=== PATIENT | male | born 1950 | race Hispanic/Latino ===

== ENCOUNTER 2019-01-30 16:00 | Inpatient (IN) | payer MEDICARE, OTHER ==
[2019-01-30 16:22] LABS: #Eosinphils 0.2 thou/uL (0.0-0.7); #Lymphocytes 2.7 thou/uL (1.20-3.40); #Monocytes 0.7 thou/uL (0.11-0.59); #Neutrophils 4.4 thou/uL (1.40-6.50); %Basophils 0.3 % (0.0-1.0); %Eosinophils 2.1 % (0.0-10.0); %Monocytes 8.3 % (0.0-10.0); %Neutrophils 55.3 % (42.0-75.0); Hemoglobin 15.1 g/dL (14.0-18.0); Mean Corpuscular HGB CONC 33.1 g/dL (32.0-36.0); Mean Corpuscular Hemoglobin 30.1 pg (27.0-31.0); Mean Platelet Volume 7.8 fL (7.4-10.4); Platelet Count 222 thou/uL (130-400); RBC Distribution Width 12.3 % (11.5-14.5)
--- NOTE | 2019-01-30 16:30 | RAD ---
Exam: Chest one view HISTORY:Chest pain Comparison: None FINDINGS: Lungs: Mild bilateral perihilar interstitial, reticulonodular opacities are present. Cardiac silhouette:Accentuated by technique. Pulmonary vessels: Mild prominence, centrally Pleural Spaces: Hazy density at the lower chest bilaterally could relate to shallow depth of inspirat ion although small volume pleural fluid cannot be excluded. Pneumothorax: None Osseous abnormalities: None of acuity. IMPRESSION: Bilateral perihilar interstitial opacities, as well as hazy densities at the lower lung z ones. While findings could relate to edema or sequela from bronchiolitis, this could also be due to accentuation by shallow depth of inspiration. Correlate with clinical assessment. Findings may be further assessed with follow-up 2 view chest with deeper inspiratory effort.
[2019-01-30 16:46] LABS: ALT (SGPT) 18 U/L (8-55); AST (SGOT) 17 U/L (5-34); Albumin 4.5 g/dL (3.4-4.8); Alkaline Phosphatase 82 U/L (40-110); Anion Gap 13 mmol/L (10-20); BUN (Urea Nitrogen) 9 mg/dL (8.4-25.7); Bilirubin, Total 0.3 mg/dL (0.2-1.2); CK (CPK) 105 U/L (30-200); Calc. Creatinine Clearance 0 mL/min (70-130); Calcium 9.2 mg/dL (7.8-10.44); Carbon Dioxide 23 mmol/L (23-31); Chloride 107 mmol/L (98-107); Estimated GFR-MDRD 82; Globulin 3.3 g/dL (2.4-3.5); Glucose 107 mg/dL (80-115); Potassium 3.9 mmol/L (3.5-5.1); Protein, Total 7.8 g/dL (5.8-8.1); Sodium 139 mmol/L (136-145)
[2019-01-30 17:08] LABS: CKMB 1.6 ng/mL (0-6.6)
[2019-01-30] MEDS ORDERED: Enoxaparin Sodium 100 MG/ML SYRINGE ONE (18:49)
[2019-01-30] MEDS ORDERED: Ondansetron PF 4 MG/2 ML Vial IVP PRN (22:17)
[2019-01-30] MEDS ORDERED: Acetaminophen 325 MG TAB PO PRN (22:17)
[2019-01-30] MEDS ORDERED: Ondansetron ODT 4 MG TAB SL PRN (22:17)
[2019-01-31] MEDS ORDERED: Acetaminophen 325 MG TAB PO PRN (02:01)
[2019-01-31] MEDS ORDERED: Bisacodyl 5 MG TAB PO PRN (02:01)
[2019-01-31] MEDS ORDERED: Ondansetron PF 4 MG/2 ML Vial IVP PRN (02:01)
[2019-01-31] MEDS ORDERED: Nitroglycerin 0.4 MG TAB (25 Tab Bottle) PO PRN (02:01)
[2019-01-31] MEDS ORDERED: hydrALAZINE 20 MG/ML VIAL SLOW IVP PRN (02:03)
[2019-01-31 02:37] LABS: Troponin I 0.028 ng/mL (< 0.028)
[2019-01-31 05:06] LABS: #Eosinphils 0.3 thou/uL (0.0-0.7); #Monocytes 0.7 thou/uL (0.11-0.59); #Neutrophils 3.7 thou/uL (1.40-6.50); %Basophils 0.3 % (0.0-1.0); %Eosinophils 3.7 % (0.0-10.0); %Lymphocytes 38.8 % (21.0-51.0); %Monocytes 9.1 % (0.0-10.0); %Neutrophils 48.1 % (42.0-75.0); Hemoglobin 14.4 g/dL (14.0-18.0); Mean Corpuscular Hemoglobin 30.8 pg (27.0-31.0); Mean Corpuscular Volume 93.4 fL (78.0-98.0); Mean Platelet Volume 8.7 fL (7.4-10.4); Platelet Count 203 thou/uL (130-400); RBC Distribution Width 12.5 % (11.5-14.5); Red Blood Cell (RBC) Count 4.69 mill/uL (4.70-6.10); White Blood Cell (WBC) Count 7.6 thou/uL (4.8-10.8)
[2019-01-31 05:14] LABS: Anion Gap 13 mmol/L (10-20); BUN (Urea Nitrogen) 9 mg/dL (8.4-25.7); Calc. Creatinine Clearance 115 mL/min (70-130); Carbon Dioxide 24 mmol/L (23-31); Chloride 106 mmol/L (98-107); Estimated GFR-MDRD 89; Glucose 98 mg/dL (80-115); Sodium 139 mmol/L (136-145)
[2019-01-31] MEDS ORDERED: Communication Order-Pharmacy FS SCH ×2 (06:15→17:16)
[2019-01-31] MEDS: Sodium Chloride 0.9% 1,000 ML IV SCH ×2 (06:58→17:47)
[2019-01-31] MEDS: Isosorbide Mononitrate 20 MG TAB PO SCH (06:59)
[2019-01-31] MEDS: Amlodipine 10 MG TAB PO SCH ×2 (07:00→07:01)
[2019-01-31] MEDS: Aspirin 325 mg Enteric Coated Tablet PO SCH (07:00)
[2019-01-31] MEDS: Lisinopril 20 MG TAB PO SCH (07:01)
[2019-01-31] MEDS: Atorvastatin Calcium 20 MG TAB PO SCH (07:01)
--- NOTE | 2019-01-31 07:28 | HP ---
PRIMARY CARE PROVIDER: Unknown. CHIEF COMPLAINT: Chest pain. HISTORY OF PRESENT ILLNESS: Mr. Janna Palmer is a pleasant 68-year-old gentleman who was seen at [facility] on January 31, 2019, after he was sent to the emergency room by his instrument and electrical technician. Mr. Janna Palmer mainly speaks Russian. Channeler Outsole was used for this clinical encounter. He reports that he has had left-sided chest discomfort over the last 3 weeks. He describes it as a pressure-like sensation, 6/10 at its worst, nonradiating, although he reports that his left arm hurt as well. He denies any accompanying shortness of breath or dizziness. He describes the pain as on and off, no known aggravating factors, but it improved with sublingual isosorbide . He denies any fevers or chills. He denies any abdominal pain. He was seen by instrument and electrical technician and was sent to the emergency room. PAST MEDICAL HISTORY: Dyslipidemia and hypertension. PAST SURGICAL HISTORY: None. SOCIAL HISTORY: Patient denies tobacco use, alcohol use, or recreational drug use. FAMILY HISTORY: Significant for hypertension. CODE STATUS: I discussed his code status. He is full code. ALLERGIES: NO KNOWN DRUG ALLERGIES. CURRENT MEDICATIONS: 1. Amlodipine 10 mg daily. 2. Aspirin mg daily. 3. Atorvastatin 20 mg daily. 4. 5 mg sublingually as needed. 5. Isosorbide mononitrate 10 mg daily. 6. Lisinopril 40 mg daily. PHYSICAL EXAMINATION: GENERAL: On examination, Mr. Janna Palmer is awake and alert, not in acute distress. VITAL SIGNS: Blood pressure is 189/88, pulse 61, respiratory rate 18, and oxygen saturation 96% on room air. He is afebrile. He is obese, with a BMI of 35. EYES: No scleral icterus, no conjunctival pallor. ENT: Moist mucosal membranes. No oropharyngeal erythema or exudates. NECK: Supple, nontender, trachea is midline. RESPIRATORY: Accessory muscles of breathing are not active. Chest wall movements are symmetric bilaterally. Lungs are clear to auscultation without wheeze, rhonchi, or crepitations. CARDIOVASCULAR: S1 and S2 are heard, regular. Peripheral pulses palpable. NEUROLOGIC: Cranial nerves 2 through 12 intact, deep tendon reflexes 2+. MUSCULOSKELETAL: Power is 5/5 in all 4 extremities. SKIN: No rashes or subcutaneous nodules. LYMPHATIC: No cervical lymphadenopathy. PSYCHIATRIC: Normal mood, normal affect, patient is oriented to person, place, and time. LABORATORY DATA: Mr. Janna Palmer' labs and investigations were reviewed. I reviewed his electrocardiogram, which shows normal sinus rhythm. He has T-waves. I also reviewed his chest x-ray, which showed hazy densities at the lower lung zones. He has an unremarkable CBC, normal comprehensive metabolic profile, troponin-I initially indeterminate at 0.030, subsequently trending to normal at 0.020. ASSESSMENT AND PLAN: Mr. Janna Palmer is a pleasant 68-year-old gentleman who was seen at [facility] on January 31, 2019. His problem list includes: 1. Chest pain: Mr. Janna Palmer is presenting with chest pain. His presentation is suspicious for a cardiac etiology for chest pain. His case has been discussed by emergency room physician with instrument and electrical technician on-call. Patient will be admitted to the hospital for further management on telemetry floor. He has received a dose of Lovenox 1 mg/kg subcutaneously. Further doses depending on Cardiology Service opinion. We will start him on aspirin. We will resume home medications once clarified. 2. Dyslipidemia: Continue statin. 3. Hypertensive urgency: Resume home medications, add p.r.n. antihypertensives. 4. Abnormal chest x-ray: We will check PA and lateral views to evaluate. Many thanks for allowing me to participate in your patient's care. Please feel free to contact me with any questions or concerns. LEVEL OF RISK: High. LEVEL OF COMPLEXITY: High. Job ID: [id number]
--- NOTE | 2019-01-31 10:11 | RAD ---
TWO VIEW CHEST: HISTORY: Assess for infection. COMPARISON: Portable chest 01/30/2019. FINDINGS: Lung watson appear well aerated and clear. No evidence of infiltrate identified. No effusion or vas cular congestion. Heart size within normal range. IMPRESSION: No acute process identified. POS: [facility]
[2019-01-31] MEDS ORDERED: Lidocaine 1% (PF) 30 ML VIAL ONE (11:21)
[2019-01-31] MEDS ORDERED: Iopamidol 370 76% 100 ML VIAL ONE (11:22)
[2019-01-31] MEDS ORDERED: Fentanyl 100 MCG/2 ML VIAL ONE (12:26)
[2019-01-31] MEDS ORDERED: Midazolam HCl 2 mg/2 ml Vial ONE (12:26)
[2019-01-31] MEDS ORDERED: Nitroglycerin 0.4 MG TAB (25 Tab Bottle) SL PRN (12:57)
[2019-01-31] MEDS ORDERED: Acetaminophen/Codeine 30-300mg Tablet PO PRN ×2 (12:57)
[2019-01-31] MEDS ORDERED: Sodium Chloride 0.9% 200 ML IV PRN (12:57)
[2019-01-31] MEDS ORDERED: Heparin 10,000 UNITS/ 10 ML VIAL SLOW IVP SCH (13:00)
[2019-01-31] MEDS ORDERED: Nitroglycerin 50 MG/250 ML BOT 250 ML IVPB SCH (13:00)
[2019-01-31] MEDS ORDERED: Sodium Chloride 0.9% 1,000 ML IV SCH (13:00)
[2019-01-31 13:43] LABS: Hemoglobin 14.7 g/dL (14.0-18.0); Platelet Count 213 thou/uL (130-400)
[2019-01-31] MEDS ORDERED: Heparin 25,000 units/D5W 500 ML IVPB SCH (17:00)
[2019-01-31] MEDS ORDERED: Enalaprilat Dihydrate 1.25 MG/ML VIAL SLOW IVP SCH (17:45)
--- NOTE | 2019-01-31 22:25 | CON ---
DATE OF CONSULTATION: 01/31/2019 REQUESTING PHYSICIAN: Surinder Wilson MD CHIEF COMPLAINT: Chest pain. HISTORY OF PRESENT ILLNESS: The patient is a 68-year-old man, who was in [place] and presented to clinic there reporting chest pain. He apparently was told that he probably had a heart attack. He was started on medications and instructed to follow up with a doctor in the [place]. Yesterday, he went to his first appointment with Dr. Wilson and had substernal chest pain radiating into his left arm walking to the appointment. His pain has been happening with increasing frequency over the last month and occasionally happens at rest. He does not have any shortness of breath, nausea or diaphoresis with this. PAST MEDICAL HISTORY: Significant for hypertension. He does not smoke. His father has heart problems. None of his siblings have known heart problems. REVIEW OF SYSTEMS: Positive for some left arm numbness about 3 years ago and a previous Mehta's palsy. He has had no other eye, speech, facial, or extremity symptoms consistent with TIAs. No shortness of breath. No PND. No orthopnea. No claudication symptoms. PHYSICAL EXAMINATION: GENERAL: He is reasonably healthy-appearing. VITAL SIGNS: Heart rate is in the upper 50s to lower 60s. Blood pressures in the 120 to 140 over 75 to 85 range. Height is 5 feet 5 inches, weight is 212-1/4 pounds. HEENT: He has no xanthelasma. No JVD. No carotid bruits. CHEST: Clear to auscultation. HEART: He has a regular rate and rhythm. ABDOMEN: Soft and nontender. MUSCULOSKELETAL: He has easily palpable radial and dorsalis pedis pulses. No clubbing, cyanosis, or edema. IMAGING DATA: Chest x-ray shows a slightly ectatic aorta without overt cardiomegaly. His initial chest x-ray suggested some edema, but a followup x-ray shows that to be cleared. His EKG shows biphasic Ts in leads V2 through V5. LABORATORY DATA: Shows a white count of 8.0, hemoglobin 15.1, hematocrit 45.5, platelets 222,000. He has normal electrolytes. Glucose 107, BUN 9, creatinine 0.92, albumin is 4.5, calcium 9.2. LFTs normal. His troponins were 0.030, 0.020 and 0.028. IMPRESSION AND RECOMMENDATIONS: His cardiac catheterization shows large coronaries in a right-dominant system. He has a subtotal ulcerated lesion in the ostium of his LAD. Echocardiogram is pending, although the patient's medication list in the hospital EMR shows him being on aspirin, Isordil, lisinopril, Lipitor, and Norvasc. Discussions with Dr. Wilson were that his home list of medicines there in office included Plavix. Given the unstable nature of his symptoms and the severity of his disease, I think it is advisable to proceed in spite of that and we will plan on coronary artery bypass grafting in the morning. In the meantime, he is being started on heparin and IV nitroglycerin and I am giving him a small dose of IV lisinopril to drop his blood pressure from the systolic 140 range to try to make sure that his angina stays under control. Job ID: [id number]
[2019-02-01] MEDS: Sodium Chloride 0.9% 1,000 ML IV SCH ×2 (02:43→12:15)
[2019-02-01] MEDS ORDERED: CEFAZOLIN 2 GM in Premix Bag 1 BAG IVPB SCH (05:00)
[2019-02-01] MEDS: Lisinopril 20 MG TAB PO SCH (06:13)
[2019-02-01] MEDS ORDERED: Albumin 5% 500 ML ONE (06:40)
[2019-02-01] MEDS ORDERED: Fentanyl 250 MCG/5 ML VIAL ONE (06:50)
[2019-02-01] MEDS ORDERED: Vecuronium 10 MG VIAL ONE ×2 (06:51→11:20)
[2019-02-01] MEDS ORDERED: Midazolam HCl 5 mg/5 ml Vial ONE (06:51)
[2019-02-01] MEDS ORDERED: Dexmedetomidine 200 MCG/2 ML VIAL ONE (06:51)
[2019-02-01] MEDS ORDERED: Heparin 10,000 UNITS/1 ML VIAL 30,000 UNITS in Sodium Chloride 0.9% 1,000 ML FS SCH (07:00)
[2019-02-01] MEDS: Atorvastatin Calcium 20 MG TAB PO SCH (07:54)
[2019-02-01] MEDS: Aspirin 325 mg Enteric Coated Tablet PO SCH (07:54)
[2019-02-01] MEDS: Isosorbide Mononitrate 20 MG TAB PO SCH (07:54)
[2019-02-01] MEDS ORDERED: Magnesium 5 GM/10 ML VIAL ONE (11:20)
[2019-02-01] MEDS ORDERED: Protamine Sulfate 250 MG/25 ML VIAL ONE (11:20)
[2019-02-01] MEDS ORDERED: PROPOFOL 200 MG/20 ML VIAL ONE (11:20)
[2019-02-01] MEDS ORDERED: Mannitol 12.5 GM/50 ML ONE (11:20)
[2019-02-01] MEDS ORDERED: Nitroglycerin 50 MG/250 ML BOT ONE (11:20)
[2019-02-01] MEDS ORDERED: Calcium Chloride 1 GM/10 ML Abboject SYRINGE ONE (11:20)
[2019-02-01] MEDS ORDERED: Heparin 5,000 UNITS/ML VIAL ONE (11:20)
[2019-02-01] MEDS ORDERED: Sodium Bicarb 50 MEQ/50 ML VIAL ONE (11:20)
[2019-02-01] MEDS ORDERED: Lidocaine 2% PF 100 mg/5 ml Syringe ONE (11:20)
[2019-02-01] MEDS ORDERED: Heparin 30,000 units/30 ml VIAL ONE (11:20)
[2019-02-01] MEDS ORDERED: Aminocaproic Acid 5 GM/20 ML VIAL ONE (11:20)
[2019-02-01] MEDS ORDERED: Papaverine 60 MG/2 ML VIAL ONE (11:20)
[2019-02-01] MEDS ORDERED: Potassium Chloride 60 MEQ/30 ML VIAL ONE (11:20)
[2019-02-01] MEDS ORDERED: Norepinephrine 4 MG/4 ML VIAL ONE (11:20)
[2019-02-01] MEDS ORDERED: Cardioplegic Soln 1,000 ML BAG ONE (11:20)
[2019-02-01] MEDS ORDERED: Thrombin 5000 UNITS/5 ML VIAL ONE (11:20)
[2019-02-01] MEDS ORDERED: Norepinephrine 8 MG/0.9% NS 250 ML IVPB PRN (11:47)
[2019-02-01] MEDS ORDERED: Hetastarch 6% 500 ML 500 ML IVPB PRN (11:47)
[2019-02-01] MEDS ORDERED: Nitroglycerin 50 MG/250 ML BOT 250 ML IVPB PRN (11:47)
[2019-02-01] MEDS ORDERED: Bisacodyl 10 MG SUPP PR PRN (11:47)
[2019-02-01] MEDS ORDERED: Fentanyl 100 MCG/2 ML VIAL SLOW IVP PRN (11:47)
[2019-02-01] MEDS ORDERED: Guaifenesin DM 100-10/5 ML UDCUP PO PRN (11:47)
[2019-02-01] MEDS ORDERED: niCARdipine 25 MG in Sodium Chloride 0.9% 250 ML 250 ML IVPB PRN (11:47)
[2019-02-01] MEDS ORDERED: Potassium Chloride 20 MEQ/100 ML PREMIX BAG IVPB PRN (11:47)
[2019-02-01] MEDS ORDERED: Morphine 2 MG/ML SYRINGE SLOW IVP PRN (11:47)
[2019-02-01] MEDS ORDERED: hydrALAZINE 20 MG/ML VIAL SLOW IVP PRN (11:47)
[2019-02-01] MEDS ORDERED: Post-Op Insulin Drip Protocol IVPB ONE (11:47)
[2019-02-01] MEDS ORDERED: Ondansetron PF 4 MG/2 ML Vial IVP PRN (11:47)
[2019-02-01] MEDS ORDERED: Bisacodyl 5 MG TAB PO PRN (11:47)
[2019-02-01] MEDS ORDERED: Promethazine HCl 25 MG/ML VIAL IM PRN (11:47)
[2019-02-01] MEDS ORDERED: Mag-Al 1200 mg/1200 mg/30 ML UDCUP PO PRN (11:47)
[2019-02-01] MEDS ORDERED: Acetaminophen 325 MG TAB PO PRN (11:47)
[2019-02-01] MEDS ORDERED: Dextrose 5% in Water 1,000 ML IV PRN (11:59)
[2019-02-01] MEDS ORDERED: HUMULIN R 100 UNITS in Sodium Chloride 0.9% 100 ML IVPB SCH (11:59)
[2019-02-01] MEDS ORDERED: Dextrose 50% Abboject 50 ML SYRINGE SLOW IVP PRN (11:59)
[2019-02-01] MEDS ORDERED: Insulin Regular 300 UNITS/3 ML VIAL SC PRN (11:59)
[2019-02-01 12:09] LABS: Actual Bicarbonate (HCO3a) 21.7 mEq/L (22-28); Base Excess (BEa) -4.4 mEq/L (-2.0 to +3.0); Calcium, Ionized 1.16 mmol/L (1.12-1.30); Carboxyhemoglobin (COHb) 0.4 gm% (0.0-3.0); Hemoglobin (Hb) 13.2 g/dL (14.0-18.0); O2 Tension (PaO2) 125.4 mmHg (> 80.0); Potassium - ABG Lab 4.29 mmol/L (3.70-5.30); pH, Arterial 7.31 (7.35-7.45)
[2019-02-01 12:11] LABS: Puncture Site ALINE
[2019-02-01] MEDS: Ketorolac Tromethamine 30 MG/ML VIAL IVP SCH ×3 (12:15→23:21)
[2019-02-01 12:20] LABS: #Eosinphils 0.1 thou/uL (0.0-0.7); #Lymphocytes 2.3 thou/uL (1.20-3.40); #Monocytes 0.9 thou/uL (0.11-0.59); #Neutrophils 11.4 thou/uL (1.40-6.50); %Basophils 0.2 % (0.0-1.0); %Eosinophils 0.7 % (0.0-10.0); %Lymphocytes 15.6 % (21.0-51.0); %Monocytes 6.1 % (0.0-10.0); %Neutrophils 77.4 % (42.0-75.0); Hemoglobin 12.9 g/dL (14.0-18.0); Mean Corpuscular HGB CONC 33.2 g/dL (32.0-36.0); Mean Corpuscular Hemoglobin 29.6 pg (27.0-31.0); Mean Corpuscular Volume 89.1 fL (78.0-98.0); Mean Platelet Volume 8.4 fL (7.4-10.4); Platelet Count 142 thou/uL (130-400); RBC Distribution Width 12.2 % (11.5-14.5); Red Blood Cell (RBC) Count 4.35 mill/uL (4.70-6.10); White Blood Cell (WBC) Count 14.7 thou/uL (4.8-10.8)
[2019-02-01] MEDS: Fentanyl 100 MCG/2 ML VIAL SLOW IVP PRN ×3 (12:23→20:05)
[2019-02-01 12:26] LABS: INR-International Normal Ratio 1.2; PTT 30.4 SEC (22.9-36.1); Prothrombin Time 15.6 SEC (12.0-14.7)
[2019-02-01 12:48] LABS: Anion Gap 9 mmol/L (10-20); BUN (Urea Nitrogen) 7 mg/dL (8.4-25.7); Calc. Creatinine Clearance 132 mL/min (70-130); Calcium 7.6 mg/dL (7.8-10.44); Carbon Dioxide 22 mmol/L (23-31); Chloride 111 mmol/L (98-107); Estimated GFR-MDRD Greater than 90; Glucose 167 mg/dL (80-115); Potassium 4.3 mmol/L (3.5-5.1); Sodium 138 mmol/L (136-145)
[2019-02-01 13:06] LABS: Potassium 4.4 mmol/L (3.5-5.1)
--- NOTE | 2019-02-01 13:26 | RAD ---
PORTABLE CHEST: 02/01/2019 PROVIDED CLINICAL HISTORY: Post open heart. COMPARISON: 01/31/2019 FINDINGS: Interval median sternotomy changes. The cardiac silhouette appears enlarged, which may be at least pa rtially on the basis of the portable technique. Left subclavian central line with tip overlying the e xpected location of the cavoatrial junction is now noted. Mediastinal drains are seen. Left basilar pleural and/or parenchymal opacity is noted. The supine nature of the examination is not sensitive fo r detection of pneumothorax without evidence for such. IMPRESSION: Interval postoperative changes, as described. POS: [facility]
[2019-02-01] MEDS: HYDROcodone/Acetaminophen 5/325 mg Tablet PO PRN ×2 (14:14→22:43)
--- NOTE | 2019-02-01 14:18 | OP ---
DATE OF PROCEDURE: 02/01/2019 PROCEDURES PERFORMED: Coronary artery bypass grafting x1 with left internal mammary artery to the left anterior descending. PREOPERATIVE DIAGNOSES: Coronary artery disease with unstable angina. POSTOPERATIVE DIAGNOSES: Coronary artery disease with unstable angina. ANESTHESIA: General endotracheal anesthesia. INDICATIONS: The patient is a 68-year-old hypertensive man, who over the last month has had a crescendo pattern of angina including angina at rest. Cardiac catheterization demonstrated a subtotal ostial LAD lesion. Echocardiography showed good left ventricular function. He is now taken to the operating room for revascularization. FINDINGS: Pump time 39 minutes. Cross-clamp time 18 minutes. Large good quality GUNJAN. The LAD was about a 2.5 mm good quality vessel. The pericardium was closed. NARRATIVE REPORT: After informed consent was obtained, the patient was taken to the operating room and placed in supine position on the operating table. After the induction of general endotracheal anesthesia, the patient was placed in Trendelenburg and his left upper chest was prepped and draped in sterile fashion. A triple lumen central line kit was used to place a left subclavian central line by the Seldinger technique. All 3 ports easily aspirated and flushed and the line was secured with suture and the patient's torso, groins, and lower extremities were then prepped and draped in sterile fashion. Median sternotomy was performed. The left internal mammary artery was harvested as a skeletonized in-situ graft from the level of the xiphoid to the level of the subclavian vein through an extrapleural exposure. The patient was heparinized and the mammary was ligated and divided distally. There was good flow through the mammary, which was then instilled intraluminally with papaverine solution. The mammary bed was inspected for hemostasis. The GUNJAN retractor was replaced with a Webb retractor. The pericardium was opened and marsupialized. The aorta was palpated and was soft. A double concentric pursestring of 2-0 Ethibond was placed in ascending aorta just within the pericardial reflection and a single pursestring was placed in the right atrial appendage. Aortic and venous cannulae were inserted and secured by their pursestrings. The medial reflections of the pleura were mobilized and a small rents in the pleura were repaired over a Valsalva maneuver using 6-0 Prolene suture. Cardiopulmonary bypass was instituted and the patient was allowed to passively cool. The heart was examined. The LAD was identified. A longitudinal slit was made in the pericardium anterior to the left phrenic nerve through which the mammary could be passed without developing the plane between the aorta and the pulmonary artery. An aortic cross-clamp was applied and cardioplegia was administered through an aortic root needle. When arrest have been achieved, attention was turned to the LAD, which was opened with a Scobey blade, Henry scissors. The left GUNJAN was spatulated and anastomosed there end-to-side with running 7-0 Prolene suture and then tacked to the epicardium. The aortic cross-clamp was removed. A purse-string was placed around the root needle. The root needle was removed and the pursestring secured. The posterior pericardial drain was brought out through a separate incision and secured with suture. Right atrial and right ventricular temporary epicardial pacing wires were placed. The patient was then easily from cardiopulmonary bypass. Aortic and venous cannulae were removed and the pursestring secured. Protamine was administered. When hemostasis was adequate an anterior mediastinal drain was placed. The pericardium was easily closed over it with running Vicryl. The cut surfaces of the sternum were treated with vancomycin paste and platelet rich GPS. The sternum was then reapproximated with #7 stainless steel wires. The soft tissues were irrigated and treated with platelet poor GPS. The fascia was closed over the wires with running #1 Vicryl and the subcutaneous tissue was reapproximated with running 2-0 Vicryl. The skin was closed with a running 3-0 Vicryl subcuticular suture. The wound was dressed and the patient was taken to the intensive care unit in stable condition. Job ID: [id number]
[2019-02-01] MEDS ORDERED: Lorazepam 0.5 MG TAB PO PRN (16:24)
--- NOTE | 2019-02-01 16:51 | PDOC.CPN ---
- Subjective Date: 02/01/19 Time: 16:50 Interval history: Extubated post op. C/o chest wall pain from surgery. BP in the 90's on low dose levophed - Objective Allergies/Adverse Reactions: Allergies Allergy/AdvReac Type Severity Reaction Status Date / Time No Known Drug Allergies Allergy Verified 01/30/19 22:52 Visit Medications: Current Medications Acetaminophen (Tylenol) 650 mg PO Q6H PRN PRN Reason: Headache/Fever/Mild Pain (1-3) Hydrocodone Bitart/Acetaminophen ([place] 5/325) 1 tab PO Q4H PRN PRN Reason: Moderate Pain (4-6) Hydrocodone Bitart/Acetaminophen ([place] 5/325) 2 tab PO Q4H PRN PRN Reason: Severe Pain (7-10) Last Admin: 02/01/19 14:14 Dose: 2 tab Al Hydroxide/Mg Hydroxide (Maalox) 30 ml PO Q4H PRN PRN Reason: Indigestion Albumin Human (Albumin 5%) 12.5 gm IVPB Q6H PRN PRN Reason: To Maintain SBP> 90 mmHG Stop: 02/02/19 11:48 Albumin Human (Albumin 5%) 25 gm IVPB Q6H PRN PRN Reason: To Maintain SBP > 90 mmHG Stop: 02/02/19 11:48 Albuterol/Ipratropium (Duoneb) 3 ml NEB Q6H PRN PRN Reason: SHORTNESS OF BREATH Aspirin (Ecotrin) 81 mg PO DAILY [facility] Last Admin: 02/01/19 07:54 Dose: Not Given Atorvastatin Calcium (Lipitor) 20 mg PO DAILY [facility] Last Admin: 02/01/19 07:54 Dose: Not Given Bisacodyl (Dulcolax) 10 mg PO Q12H PRN PRN Reason: Constipation Bisacodyl (Dulcolax) 10 mg CO Q12H PRN PRN Reason: Constipation Dextrose/Water (Dextrose 50%) 25 gm SLOW IVP PRN PRN PRN Reason: PER HYPOGLYCEMIC PROTOCOL Docusate Sodium (Colace) 100 mg PO BID [facility] Famotidine (Pepcid) 20 mg SLOW IVP Q12HR [facility] Fentanyl (Sublimaze) 25 mcg SLOW IVP Q2H PRN PRN Reason: Moderate Pain (4-6) Stop: 02/03/19 07:35 Fentanyl (Sublimaze) 50 mcg SLOW IVP Q2H PRN PRN Reason: Severe Pain (7-10) Stop: 02/03/19 07:35 Last Admin: 02/01/19 16:31 Dose: 50 mcg Folic Acid (Folvite) 1 mg PO DAILY [facility] Glucagon (Glucagon) 1 mg SC PRN PRN PRN Reason: PER HYPOGLYCEMIC PROTOCOL Guaifenesin/Dextromethorphan (Robitussin Dm) 15 ml PO Q4H PRN PRN Reason: Cough Hydralazine HCl (Apresoline) 10 mg SLOW IVP Q6H PRN PRN Reason: To Maintain SBP< 140mmHG Hetastarch/Sodium Chloride (Hespan) 500 mls @ 0 mls/hr IVPB PRN PRN PRN Reason: To Maintain SBP > 90mmHg Stop: 02/02/19 07:35 Norepinephrine Bitartrate (Levophed) 250 mls @ 0 mls/hr IVPB PRN PRN; Protocol PRN Reason: To maintain SBP > 90 mmHG Nicardipine HCl 25 mg/ Sodium (Chloride) 260 mls @ 0 mls/hr IVPB INF PRN; Protocol PRN Reason: To Maintain SBP< 140mmHG Nitroglycerin/Dextrose (Nitroglycerin 50 Mg/250 Ml Bot) 250 mls @ 0 mls/hr IVPB PRN PRN; Protocol PRN Reason: To Maintain SBP< 140mmHG Sodium Chloride (Normal Saline 0.9%) 1,000 mls @ 75 mls/hr IV .[id number] [facility] Last Admin: 02/01/19 12:15 Dose: 1,000 mls Insulin Human Regular 100 (units/ Sodium Chloride) 101 mls @ 0 mls/hr IVPB INF [facility]; Protocol Last Admin: 02/01/19 13:11 Dose: 101 mls Dextrose/Water (D5w) 1,000 mls @ 0 mls/hr IV INF PRN PRN Reason: PRN HYPOGLYCEMIC PROTOCOL Insulin Human Regular (Humulin R) 0 units SC Q4H PRN; Protocol PRN Reason: POST OP SLIDING SCALE Ketorolac Tromethamine (Toradol) 15 mg IVP Q6HR [facility] Stop: 02/02/19 06:01 Last Admin: 02/01/19 12:15 Dose: 15 mg Lorazepam (Ativan) 0.5 mg PO Q4H PRN PRN Reason: ASE >9 Morphine Sulfate (Morphine) 2 mg SLOW IVP Q15MIN PRN PRN Reason: Severe Pain (7-10) Multivitamins (Theragran) 1 tab PO DAILY [facility] Ondansetron HCl (Zofran) 4 mg IVP Q6H PRN PRN Reason: Nausea/Vomiting Potassium Chloride (Kcl) 20 meq IVPB PRN PRN PRN Reason: K level </= 4.0 Promethazine HCl (Phenergan) 6.25 mg IM Q4H PRN PRN Reason: Nausea/Vomiting Sodium Chloride (Flush - Normal Saline) 10 ml IVF Q12HR [facility] Thiamine HCl (Thiamine) 100 mg PO DAILY [facility] Vital Signs & Weight: Vital Signs Temp BP Pulse Ox 02/01/19 16:01 98 02/01/19 16:00 98.2 F 02/01/19 12:57 99 02/01/19 12:00 97.8 F 02/01/19 06:13 116/68 Weight 212 lb 8.41 oz - Physical Exam General: alert & oriented x3 HEENT: mucus membranes moist Neck: no masses Cardiac: no murmur, regular rate, regular rhythm Lungs: normal exam Neuro: grossly intact Abdomen: soft Skin: rash - Labs Result Diagrams: 02/01/19 12:07 02/01/19 12:07 Troponin/CKMB CK-MB (CK-2) 1.6 ng/mL (0-6.6) 01/30/19 16:16 Troponin I 0.028 ng/mL (< 0.028) 01/31/19 02:06 - Telemetry Sinus rhythms and dysrhythmias: sinus rhythm - Assessment/Plan Assessment/Plan: CAD s/p CABG HTN Doing well post op CW pain treated Continue to titrate down levophed as BP allows
--- NOTE | 2019-02-01 20:06 | EKG ---
Test Reason : POST CABG Blood Pressure : / mmHG Vent. Rate : 074 BPM Atrial Rate : 074 BPM P-R Int : 172 ms QRS Dur : 080 ms QT Int : 418 ms P-R-T Axes : 034 -07 064 degrees QTc Int : 463 ms Normal sinus rhythm T wave abnormality, consider anterior ischemia Prolonged QT Abnormal ECG When compared with ECG of 30-JAN-2019 16:08, (Unconfirmed) QRS duration has decreased ST now depressed in Anterior leads Confirmed by JONELLE KUNZ, SJerry ([id number]) on 02/01/2019 8:06:41 PM Referred By: YAN Confirmed By:DR. Niya SAL MD
[2019-02-01] MEDS: Docusate 100 MG CAP PO SCH (20:09)
[2019-02-01 20:18] LABS: #Lymphocytes 1.3 thou/uL (1.20-3.40); #Neutrophils 11.9 thou/uL (1.40-6.50); %Eosinophils 0.2 % (0.0-10.0); %Lymphocytes 8.9 % (21.0-51.0); %Monocytes 7.2 % (0.0-10.0); %Neutrophils 83.7 % (42.0-75.0); Mean Corpuscular HGB CONC 33.9 g/dL (32.0-36.0); Mean Corpuscular Hemoglobin 30.9 pg (27.0-31.0); Mean Platelet Volume 9.6 fL (7.4-10.4); Platelet Count 155 thou/uL (130-400); RBC Distribution Width 12.6 % (11.5-14.5); White Blood Cell (WBC) Count 14.2 thou/uL (4.8-10.8)
--- NOTE | 2019-02-01 20:52 | CON ---
DATE OF CONSULTATION: 02/01/2019 HISTORY OF PRESENT ILLNESS: Naif Palmer is a 68-year-old, who presented with chest pain. He subsequently had undergone coronary artery bypass grafting. I was consulted to assist in his followup. PAST MEDICAL HISTORY: Remarkable for hypertension. SOCIAL HISTORY: He is a nonsmoker and nondrinker. ALLERGIES: REPORTS NO DRUG ALLERGIES. FAMILY HISTORY: Negative for lung disease in early age. REVIEW OF SYSTEMS: 10 point review of systems completed; otherwise negative. PHYSICAL EXAMINATION: GENERAL: He is in no distress. He is complaining of mild chest discomfort. VITAL SIGNS: Heart rate 72, blood pressure 114/69, respiratory rate is 20. He is extubated. HEENT: Pupils are equal. Sclerae . NECK: Supple. No lymphadenopathy. He has a sternal bandage. LUNGS: Clear. HEART: Regular rhythm. No S3. ABDOMEN: Soft and nontender. EXTREMITIES: Without clubbing, cyanosis, or edema. NEURO: Nonfocal. LABORATORY DATA: White count 14.7, hemoglobin 12.9, platelets 142. Electrolytes were remarkable for sodium 138, potassium 4.3, chloride 111, bicarb 22, BUN 7, and creatinine 0.7. Blood gas; pH 7.31, CO2 44, PO2 125. IMPRESSION: Status post coronary artery bypass grafting, clinically stable. We will be happy to follow the other physicians caring for him. TIME SPENT: This is a 70-minute consult, with greater than 50% of the time spent on the unit coordinating care. Job ID: [id number] MTDD
[2019-02-01] MEDS ORDERED: Famotidine/PF 20 mg/2ml Vial SLOW IVP SCH (21:00)
--- NOTE | 2019-02-01 23:17 | PDOC.HOSPP ---
- Subjective Encounter Date: 02/01/19 Encounter Time: 15:00 Subjective: Patient seen and examined for NSTEMI. s/p CABG. No CP. No new complaints. No overnight events - Objective Vital Signs & Weight: Vital Signs (12 hours) Temp Pulse Ox 02/01/19 20:00 98.6 F 02/01/19 16:01 98 02/01/19 16:00 98.2 F 02/01/19 12:57 99 02/01/19 12:00 97.8 F Weight Weight 212 lb 8.41 oz Most Recent Monitor Data Heart Rate from ECG 106 NIBP 109/70 NIBP BP-Mean 83 Respiration from ECG 23 SpO2 93 I&O: 01/31/19 02/01/19 02/02/19 06:59 06:59 06:59 Intake Total 240 2367 924 Output Total 625 2050 630 Balance -385 317 294 Result Diagrams: 02/01/19 20:06 02/01/19 20:45 Additional Labs: Accuchecks 02/01/19 02/01/19 02/01/19 18:25 16:28 15:22 POC Glucose 129 H 155 H 137 H 02/01/19 02/01/19 02/01/19 14:12 13:14 12:37 POC Glucose 131 H 159 H 154 H 02/01/19 02/01/19 02/01/19 11:17 10:31 10:07 POC Glucose 156 H 158 H 153 H 02/01/19 02/01/19 09:13 08:11 POC Glucose 167 H 121 H EKG Reviewed by me: Yes (Tele SR) Hospitalist ROS - Review of Systems Respiratory: denies: cough, dry, shortness of breath, hemoptysis, SOB with excertion, pleuritic pain, sputum, wheezing, other Cardiovascular: denies: chest pain, palpitations, orthopnea, paroxysmal noc. dyspnea, edema, light headedness, other - Medication Medications: Active Medications Generic Name Dose Route Start Last Admin Trade Name Freq PRN Reason Stop Dose Admin Hydrocodone Bitart/Acetaminophen 2 tab 02/01/19 11:47 02/01/19 22:43 [place] 5/325 PO 2 tab Q4H PRN Administration Severe Pain (7-10) Albumin Human 12.5 gm 02/01/19 11:47 02/01/19 20:07 Albumin 5% IVPB 02/02/19 11:48 12.5 gm Q6H PRN Administration To Maintain SBP> 90 mmHG Aspirin 81 mg 01/31/19 09:00 02/01/19 07:54 Ecotrin PO Not Given DAILY [facility] Atorvastatin Calcium 20 mg 01/31/19 09:00 02/01/19 07:54 Lipitor PO Not Given DAILY [facility] Docusate Sodium 100 mg 02/01/19 21:00 02/01/19 20:09 Colace PO 100 mg BID [facility] Administration Famotidine 20 mg 02/01/19 21:00 02/01/19 20:09 Pepcid SLOW IVP 20 mg Q12HR [facility] Administration Fentanyl 50 mcg 02/01/19 11:47 02/01/19 20:05 Sublimaze SLOW IVP 02/03/19 07:35 50 mcg Q2H PRN Administration Severe Pain (7-10) Sodium Chloride 1,000 mls @ 75 mls/hr 02/01/19 11:47 02/01/19 12:15 Normal Saline 0.9% IV 1,000 mls .[id number] [facility] Administration Insulin Human Regular 100 101 mls @ 0 mls/hr 02/01/19 11:59 02/01/19 13:11 units/ Sodium Chloride IVPB 101 mls INF [facility] Administration Protocol As Directed Ketorolac Tromethamine 15 mg 02/01/19 12:00 02/01/19 17:06 Toradol IVP 02/02/19 06:01 15 mg Q6HR [facility] Administration Sodium Chloride 10 ml 02/01/19 21:00 02/01/19 20:37 Flush - Normal Saline IVF 10 ml Q12HR [facility] Administration - Exam General Appearance: NAD Neck: supple, no JVD Heart: RRR, no gallops, no rubs Heart - other findings: no heaves Respiratory: CTAB, no rales, no ronchi Respiratory - other findings: dec AE at bases Gastrointestinal: soft, non-tender, non-distended, normal bowel sounds Extremities: no edema Hosp A/P - Plan DVT proph w/SCDs NSTEMI CAD s/p CABG HTN Obesity BMI 35.4 h/o chronic alcoholism HTN PLAN: Cont ASA Cont low dose Pressors AM labs Cont supportive care
[2019-02-02] MEDS: Sodium Chloride 0.9% 1,000 ML IV SCH (01:01)
[2019-02-02] MEDS: HYDROcodone/Acetaminophen 5/325 mg Tablet PO PRN ×4 (02:49→21:24)
[2019-02-02 04:21] LABS: #Lymphocytes 2.2 thou/uL (1.20-3.40); #Neutrophils 7.2 thou/uL (1.40-6.50); %Basophils 0.2 % (0.0-1.0); %Eosinophils 0.2 % (0.0-10.0); %Lymphocytes 21.2 % (21.0-51.0); %Monocytes 9.3 % (0.0-10.0); %Neutrophils 69.1 % (42.0-75.0); Hemoglobin 10.7 g/dL (14.0-18.0); Mean Corpuscular HGB CONC 33.4 g/dL (32.0-36.0); Mean Corpuscular Hemoglobin 30.7 pg (27.0-31.0); Mean Corpuscular Volume 92.1 fL (78.0-98.0); Mean Platelet Volume 8.4 fL (7.4-10.4); Platelet Count 143 thou/uL (130-400); RBC Distribution Width 12.4 % (11.5-14.5); Red Blood Cell (RBC) Count 3.47 mill/uL (4.70-6.10); White Blood Cell (WBC) Count 10.5 thou/uL (4.8-10.8)
[2019-02-02 04:41] LABS: Anion Gap 11 mmol/L (10-20); BUN (Urea Nitrogen) 15 mg/dL (8.4-25.7); Calc. Creatinine Clearance 98 mL/min (70-130); Carbon Dioxide 25 mmol/L (23-31); Chloride 110 mmol/L (98-107); Estimated GFR-MDRD 74; Glucose 121 mg/dL (80-115); Potassium 4.1 mmol/L (3.5-5.1); Sodium 142 mmol/L (136-145)
[2019-02-02] MEDS: Ketorolac Tromethamine 30 MG/ML VIAL IVP SCH (05:15)
--- NOTE | 2019-02-02 07:19 | PDOC.CPN ---
- Subjective Date: 02/02/19 Time: 09:03 - Objective Allergies/Adverse Reactions: Allergies Allergy/AdvReac Type Severity Reaction Status Date / Time No Known Drug Allergies Allergy Verified 01/30/19 22:52 Visit Medications: Current Medications Acetaminophen (Tylenol) 650 mg PO Q6H PRN PRN Reason: Headache/Fever/Mild Pain (1-3) Hydrocodone Bitart/Acetaminophen ([place] 5/325) 1 tab PO Q4H PRN PRN Reason: Moderate Pain (4-6) Hydrocodone Bitart/Acetaminophen ([place] 5/325) 2 tab PO Q4H PRN PRN Reason: Severe Pain (7-10) Last Admin: 02/02/19 02:49 Dose: 2 tab Al Hydroxide/Mg Hydroxide (Maalox) 30 ml PO Q4H PRN PRN Reason: Indigestion Albumin Human (Albumin 5%) 12.5 gm IVPB Q6H PRN PRN Reason: To Maintain SBP> 90 mmHG Stop: 02/02/19 11:48 Last Admin: 02/02/19 00:59 Dose: 12.5 gm Albumin Human (Albumin 5%) 25 gm IVPB Q6H PRN PRN Reason: To Maintain SBP > 90 mmHG Stop: 02/02/19 11:48 Albuterol/Ipratropium (Duoneb) 3 ml NEB Q6H PRN PRN Reason: SHORTNESS OF BREATH Aspirin (Ecotrin) 81 mg PO DAILY [facility] Last Admin: 02/01/19 07:54 Dose: Not Given Atorvastatin Calcium (Lipitor) 20 mg PO DAILY [facility] Last Admin: 02/01/19 07:54 Dose: Not Given Bisacodyl (Dulcolax) 10 mg PO Q12H PRN PRN Reason: Constipation Bisacodyl (Dulcolax) 10 mg [place] Q12H PRN PRN Reason: Constipation Dextrose/Water (Dextrose 50%) 25 gm SLOW IVP PRN PRN PRN Reason: PER HYPOGLYCEMIC PROTOCOL Docusate Sodium (Colace) 100 mg PO BID [facility] Last Admin: 02/01/19 20:09 Dose: 100 mg Famotidine (Pepcid) 20 mg SLOW IVP Q12HR [facility] Last Admin: 02/01/19 20:09 Dose: 20 mg Fentanyl (Sublimaze) 25 mcg SLOW IVP Q2H PRN PRN Reason: Moderate Pain (4-6) Stop: 02/03/19 07:35 Fentanyl (Sublimaze) 50 mcg SLOW IVP Q2H PRN PRN Reason: Severe Pain (7-10) Stop: 02/03/19 07:35 Last Admin: 02/01/19 20:05 Dose: 50 mcg Folic Acid (Folvite) 1 mg PO DAILY [facility] Glucagon (Glucagon) 1 mg SC PRN PRN PRN Reason: PER HYPOGLYCEMIC PROTOCOL Guaifenesin/Dextromethorphan (Robitussin Dm) 15 ml PO Q4H PRN PRN Reason: Cough Hydralazine HCl (Apresoline) 10 mg SLOW IVP Q6H PRN PRN Reason: To Maintain SBP< 140mmHG Hetastarch/Sodium Chloride (Hespan) 500 mls @ 0 mls/hr IVPB PRN PRN PRN Reason: To Maintain SBP > 90mmHg Stop: 02/02/19 07:35 Norepinephrine Bitartrate (Levophed) 250 mls @ 0 mls/hr IVPB PRN PRN; Protocol PRN Reason: To maintain SBP > 90 mmHG Nicardipine HCl 25 mg/ Sodium (Chloride) 260 mls @ 0 mls/hr IVPB INF PRN; Protocol PRN Reason: To Maintain SBP< 140mmHG Nitroglycerin/Dextrose (Nitroglycerin 50 Mg/250 Ml Bot) 250 mls @ 0 mls/hr IVPB PRN PRN; Protocol PRN Reason: To Maintain SBP< 140mmHG Sodium Chloride (Normal Saline 0.9%) 1,000 mls @ 75 mls/hr IV .[id number] [facility] Last Admin: 02/02/19 01:01 Dose: 1,000 mls Insulin Human Regular 100 (units/ Sodium Chloride) 101 mls @ 0 mls/hr IVPB INF JAMIE; Protocol Last Admin: 02/01/19 13:11 Dose: 101 mls Dextrose/Water (D5w) 1,000 mls @ 0 mls/hr IV INF PRN PRN Reason: PRN HYPOGLYCEMIC PROTOCOL Insulin Human Regular (Humulin R) 0 units SC Q4H PRN; Protocol PRN Reason: POST OP SLIDING SCALE Lorazepam (Ativan) 0.5 mg PO Q4H PRN PRN Reason: ASE >9 Metoprolol Tartrate (Lopressor) 25 mg PO BID [facility] Multivitamins (Theragran) 1 tab PO DAILY [facility] Ondansetron HCl (Zofran) 4 mg IVP Q6H PRN PRN Reason: Nausea/Vomiting Potassium Chloride (Kcl) 20 meq IVPB PRN PRN PRN Reason: K level </= 4.0 Promethazine HCl (Phenergan) 6.25 mg IM Q4H PRN PRN Reason: Nausea/Vomiting Sodium Chloride (Flush - Normal Saline) 10 ml IVF Q12HR [facility] Last Admin: 02/01/19 20:37 Dose: 10 ml Thiamine HCl (Thiamine) 100 mg PO DAILY [facility] Vital Signs & Weight: Vital Signs Temp Pulse Ox 02/02/19 07:00 98.4 F 02/02/19 04:00 99.0 F 02/02/19 00:00 99.3 F 02/01/19 20:00 98.6 F 96 Weight 215 lb 9.6 oz - Physical Exam General: alert & oriented x3 HEENT: normocephaly Neck: supple neck, no masses Cardiac: regular rate, regular rhythm Lungs: normal exam, no wheezes Neuro: grossly intact Abdomen: soft - Labs Result Diagrams: 02/02/19 04:00 02/02/19 04:00 Troponin/CKMB CK-MB (CK-2) 1.6 ng/mL (0-6.6) 01/30/19 16:16 Troponin I 0.028 ng/mL (< 0.028) 01/31/19 02:06 - Assessment/Plan Assessment/Plan: CAD s/p CABG HTN 02/02 REC levophed DC this am Hold BB for now Statin, ASA treatment CT management per Sig 02/01 REC Doing well post op CW pain treated Continue to titrate down levophed as BP allows
[2019-02-02] MEDS ORDERED: Zolpidem Tartrate 5 MG TAB PO PRN (07:46)
[2019-02-02] MEDS ORDERED: Guaifenesin DM 100-10/5 ML UDCUP PO PRN (07:46)
[2019-02-02] MEDS ORDERED: Nitroglycerin 0.4 MG TAB (25 Tab Bottle) SL PRN (07:46)
[2019-02-02] MEDS ORDERED: Artificial Tears 18 DROP/0.9 ML EA EYE PRN (07:46)
[2019-02-02] MEDS ORDERED: Bisacodyl 10 MG SUPP PR PRN (07:46)
[2019-02-02] MEDS ORDERED: Mineral Oil ENEMA PR PRN (07:46)
[2019-02-02] MEDS ORDERED: diphenhydrAMINE 25 MG CAP PO PRN (07:46)
[2019-02-02] MEDS ORDERED: Bisacodyl 5 MG TAB PO PRN (07:46)
[2019-02-02] MEDS ORDERED: Mag-Al 1200 mg/1200 mg/30 ML UDCUP PO PRN (07:46)
--- NOTE | 2019-02-02 08:00 | RAD ---
EXAM: Single view of the chest HISTORY: Status post open heart surgery COMPARISON: 02/01/2019 FINDINGS: Single view of the chest shows an enlarged but stable cardiomediastinal silhouette. The pa tient is status post sternotomy. The lines and tubes are unchanged in position. There is no evidence of consolidation, mass, or pleural effusion. The bones are unremarkable. IMPRESSION: Stable exam
[2019-02-02] MEDS: Multivit, Therapeutic 1 TAB PO SCH (08:19)
[2019-02-02] MEDS: Metoprolol Tartrate 25 MG TAB PO SCH ×2 (08:20→21:23)
[2019-02-02] MEDS: Docusate 100 MG CAP PO SCH ×2 (08:20→21:23)
[2019-02-02] MEDS: Atorvastatin Calcium 20 MG TAB PO SCH (08:20)
[2019-02-02] MEDS: Folic Acid 1 MG TAB PO SCH (08:20)
[2019-02-02] MEDS ORDERED: Aspirin Chewable 81 MG TAB ONE (08:22)
[2019-02-02] MEDS: Aspirin 325 mg Enteric Coated Tablet PO SCH (08:24)
[2019-02-02] MEDS ORDERED: Thiamine 100 MG TAB PO SCH (09:00)
--- NOTE | 2019-02-02 10:02 | PRG ---
DATE OF SERVICE: 02/02/2019 SUBJECTIVE: Naif Palmer did well overnight. He is on the telemetry unit. OBJECTIVE: VITAL SIGNS: He is afebrile. Oximetry is 92% on 3 L, blood pressure 119/61. LUNGS: Clear. HEART: Regular rhythm. ABDOMEN: Soft. IMAGING STUDIES: Chest x-ray is unchanged. No effusion. IMPRESSION: Status post coronary artery bypass grafting, clinically stable. Job ID: [id number]
--- NOTE | 2019-02-02 22:38 | PDOC.HOSPP ---
- Subjective Encounter Date: 02/02/19 Encounter Time: 14:00 Subjective: Patient seen and examined for CAD. Ambulating with Cardiac Rehab. No CP. No new complaints. No overnight events - Objective Vital Signs & Weight: Vital Signs (12 hours) Temp Pulse Pulse Pulse Resp BP BP 02/02/19 21:43 79 18 02/02/19 19:53 100.2 F H 122 H 20 02/02/19 15:32 99 F 115 H 22 H 02/02/19 14:14 111 H 111 H 119/71 135/76 02/02/19 13:10 98.6 F 110 H 20 BP Pulse Ox Pulse Ox Pulse Ox 02/02/19 21:43 94 L 02/02/19 19:53 174/81 H 92 L 02/02/19 15:32 139/79 94 L 02/02/19 14:14 91 L 92 L 02/02/19 13:10 138/62 94 L Weight Weight 215 lb 9.6 oz Most Recent Monitor Data Heart Rate from ECG 116 NIBP 119/61 NIBP BP-Mean 80 Respiration from ECG 37 SpO2 92 I&O: 02/01/19 02/02/19 02/03/19 06:59 06:59 06:59 Intake Total 2367 2347.6 780 Output Total 2050 975 300 Balance 317 1372.6 480 Result Diagrams: 02/02/19 04:00 02/02/19 04:00 Additional Labs: Accuchecks 02/02/19 02/02/19 02/02/19 06:04 05:11 04:05 POC Glucose 129 H 110 117 H 02/02/19 02/02/19 02/02/19 02:53 01:08 00:12 POC Glucose 117 H 130 H 118 H 02/01/19 02/01/19 02/01/19 23:29 22:17 21:23 POC Glucose 140 H 130 H 133 H 02/01/19 02/01/19 20:07 19:17 POC Glucose 136 H 128 H EKG Reviewed by me: Yes (Tele SR) Hospitalist ROS - Review of Systems Cardiovascular: denies: chest pain, palpitations, orthopnea, paroxysmal noc. dyspnea, edema, light headedness, other Gastrointestinal: denies: nausea, vomiting, abdominal pain, diarrhea, constipation, melena, hematochezia, other - Medication Medications: Active Medications Generic Name Dose Route Start Last Admin Trade Name Freq PRN Reason Stop Dose Admin Hydrocodone Bitart/Acetaminophen 1 tab 02/01/19 11:47 02/02/19 16:16 [place] 5/325 PO 1 tab Q4H PRN Administration Moderate Pain (4-6) Hydrocodone Bitart/Acetaminophen 2 tab 02/01/19 11:47 02/02/19 21:24 [place] 5/325 PO 2 tab Q4H PRN Administration Severe Pain (7-10) Albuterol/Ipratropium 3 ml 02/01/19 11:47 02/02/19 21:43 Duoneb NEB 3 ml Q6H PRN Administration SHORTNESS OF BREATH Atorvastatin Calcium 20 mg 01/31/19 09:00 02/02/19 08:20 Lipitor PO 20 mg DAILY JAMIE Administration Docusate Sodium 100 mg 02/01/19 21:00 02/02/19 21:23 Colace PO Not Given BID JAMIE Folic Acid 1 mg 02/02/19 09:00 02/02/19 08:20 Folvite PO 1 mg DAILY JAMIE Administration Metoprolol Tartrate 25 mg 02/02/19 09:00 02/02/19 21:23 Lopressor PO 25 mg BID JAMIE Administration Multivitamins 1 tab 02/02/19 09:00 02/02/19 08:19 Theragran PO 1 tab DAILY JAMIE Administration Sodium Chloride 10 ml 02/01/19 21:00 02/02/19 21:23 Flush - Normal Saline IVF 10 ml Q12HR JAMIE Administration - Exam General Appearance: NAD Neck: supple, no JVD Heart: RRR, no gallops Respiratory: CTAB, no rales Respiratory - other findings: chest tube + Gastrointestinal: soft, normal bowel sounds Extremities: no edema Hosp A/P - Plan DVT proph w/SCDs NSTEMI CAD s/p CABG HTN Obesity BMI 35.4 h/o chronic alcoholism HTN PLAN: Cont ASA/Statins Cont low dose Metoprolol Off Pressors Cont supportive care Cont Cardiac Rehab
[2019-02-03 04:42] LABS: #Eosinphils 0.1 thou/uL (0.0-0.7); #Lymphocytes 2.1 thou/uL (1.20-3.40); #Monocytes 1.1 thou/uL (0.11-0.59); #Neutrophils 7.2 thou/uL (1.40-6.50); %Basophils 0.4 % (0.0-1.0); %Eosinophils 0.8 % (0.0-10.0); %Lymphocytes 20.2 % (21.0-51.0); %Monocytes 10.4 % (0.0-10.0); %Neutrophils 68.3 % (42.0-75.0); Mean Corpuscular HGB CONC 34.1 g/dL (32.0-36.0); Mean Corpuscular Hemoglobin 31.3 pg (27.0-31.0); Mean Corpuscular Volume 91.6 fL (78.0-98.0); Mean Platelet Volume 8.7 fL (7.4-10.4); Platelet Count 136 thou/uL (130-400); RBC Distribution Width 12.4 % (11.5-14.5); White Blood Cell (WBC) Count 10.5 thou/uL (4.8-10.8)
[2019-02-03 04:55] LABS: Anion Gap 7 mmol/L (10-20); BUN (Urea Nitrogen) 15 mg/dL (8.4-25.7); Calc. Creatinine Clearance 103 mL/min (70-130); Calcium 8.2 mg/dL (7.8-10.44); Carbon Dioxide 29 mmol/L (23-31); Chloride 109 mmol/L (98-107); Estimated GFR-MDRD 77; Glucose 129 mg/dL (80-115); Sodium 141 mmol/L (136-145)
[2019-02-03] MEDS ORDERED: Lidocaine 1% (PF) 30 ML VIAL ONE (08:27)
--- NOTE | 2019-02-03 09:05 | RAD ---
SINGLE VIEW OF THE CHEST: COMPARISON: 02/02/2019. HISTORY: Status post CABG. FINDINGS: A single view of the chest shows a normal-size cardiomediastinal silhouette. The patient is status p ost sternotomy. The central venous catheter is unchanged in position. The mediastinal drains are no t seen and may have been removed. There is a lucency projecting over the left thorax. This could re present a loculated pneumothorax. Air is seen in the neck. No mediastinal shift is seen. IMPRESSION: Likely small loculated left pneumothorax without mediastinal shift. The patient's nurse, Fransisco, was no tified of the findings at 7:59 a.m. on 02/03/2019. She said she would immediately call Dr. Apple savage CODE CR POS: CET
[2019-02-03] MEDS: Atorvastatin Calcium 20 MG TAB PO SCH (09:15)
[2019-02-03] MEDS: Aspirin Chewable 81 MG TAB PO SCH (09:15)
[2019-02-03] MEDS: Folic Acid 1 MG TAB PO SCH (09:16)
[2019-02-03] MEDS: Docusate 100 MG CAP PO SCH ×2 (09:16→19:55)
[2019-02-03] MEDS: Metoprolol Tartrate 50 MG TAB PO SCH ×2 (09:16→19:55)
[2019-02-03] MEDS: Multivit, Therapeutic 1 TAB PO SCH (09:16)
[2019-02-03] MEDS: HYDROcodone/Acetaminophen 5/325 mg Tablet PO PRN ×3 (09:17→19:54)
[2019-02-03] MEDS: Furosemide 40 MG TAB PO SCH (09:17)
--- NOTE | 2019-02-03 09:22 | RAD ---
CHEST 1 VIEW: HISTORY :Chest tube placement, pneumothorax follow-up. Comparison: Earlier, same day. FINDINGS: Small caliber thoracostomy tube is present with tip at the inferolateral left hemithorax. There is pe rsistent lucency involving the superior and medial left hemithorax. Cardiomediastinal silhouette is stable. Extrinsic artifacts limit detail. IMPRESSION: Interval placement of small-caliber chest tube, terminating at the inferolateral left chest. Stable l ucency at the superior and medial left hemithorax indicating persistent pneumothorax. Recommend continued follow-up. Transcribed Date/Time: 02/03/2019 9:48 AM
--- NOTE | 2019-02-03 10:42 | OP ---
DATE OF PROCEDURE: 02/03/2019 PROCEDURE PERFORMED: Eight-Armenian left tube thoracostomy. PREOPERATIVE DIAGNOSIS: Left pneumothorax. POSTOPERATIVE DIAGNOSIS: Left pneumothorax. ANESTHESIA: 1% lidocaine, local anesthesia. INDICATIONS: The patient is a 68-year-old man on postop day 2, following coronary artery bypass grafting utilizing left internal mammary artery harvested through an extrapleural exposure. During the night, he had some shortness of breath and increasing oxygen requirement, AND a chest x-ray that initially of appeared to be reasonably normal in fact had a near-complete collapse of the left lung. FINDINGS: Air cooper heard upon entering the chest. DESCRIPTION OF PROCEDURE: After informed consent was obtained, the patient's left chest was prepped and draped in sterile fashion. At about the nipple line, the skin at the level of the xiphoid or one interspace higher was injected with 1% lidocaine. A skin denny was performed using an 11-blade scalpel, and through that, additional lidocaine was infiltrated into the soft tissues. Use of trocar needle eventually was necessary in order to be able to march over rib and aspirate until air bubbles were achieved. A bolus of lidocaine was infiltrated there, and then the trocar needle was placed back into the 8-Armenian catheter with a partially filled syringe attached to it. It was advanced until the air was aspirated and then the catheter was advanced over the needle. The two-way stopcock from the kit was affixed to the catheter, and then, to that a three-way stopcock was affixed. An air cooper had been heard upon placing the catheter using a large syringe. It was somewhat difficult to aspirate any more air from the chest cavity. Several draws on the 60 mL syringe were performed with a modest degree of resistance. The two-way stopcock was turned off to allow for removal of the three-way stopcock and placement of the extension tubing and connector to allow for connecting the system to a Pleur-evac. The catheter was secured to the skin with suture and dressed. A chest x-ray is currently pending. Job ID: [id number]
[2019-02-03] MEDS ORDERED: Midazolam HCl 2 mg/2 ml Vial ONE (11:48)
[2019-02-03] MEDS ORDERED: Fentanyl 100 MCG/2 ML VIAL ONE (11:48)
--- NOTE | 2019-02-03 12:37 | RAD ---
RADIOGRAPH CHEST 1 VIEW: DATE: 02/03/2019 TIME: 12:07 PM HISTORY: Status post chest tube insertion for left-sided pneumothorax in 68-year-old male COMPARISON: 02/03/2019 9:00 AM FINDINGS: The previously demonstrated small bore pleural catheter at the left base has been replaced by large b ore chest tube ascending from the left base with distal tip at left midlung zone. The positioning is apical lordotic. This, and large body habitus makes it difficult to determine whether or not there is residual left pneumothorax. The pneumothorax was large on previous images earlier today. There is partial opacification of left mid and lower lung zones, probably atelectasis. No pulmonary edema. Sternotomy wires. There is bilateral subcutaneous emphysema. Left subclavian central line remains with distal tip overlying SVC. IMPRESSION: 1. Interval replacement of small bore left pleural catheter with large caliber left-sided chest tube. Uncertain whether or not the left pneumothorax has resolved, due to technique, positioning, and body habitus. Recommend repeat frontal views with better positioning, in inspiration and expiration. 2. Subcutaneous emphysema.
[2019-02-03] MEDS ORDERED: Ketorolac Tromethamine 30 MG/ML VIAL IVP SCH (12:45)
[2019-02-03] MEDS: Morphine 4 MG/ML VIAL SLOW IVP PRN ×3 (13:56→21:41)
--- NOTE | 2019-02-03 15:10 | PDOC.CPN ---
- Subjective Date: 02/03/19 Time: 15:09 Interval history: Pt withg increased SOB noted. Recurrent pneuthorax. Pt is s/p CT and transferred to ICU - Objective Allergies/Adverse Reactions: Allergies Allergy/AdvReac Type Severity Reaction Status Date / Time No Known Drug Allergies Allergy Verified 01/30/19 22:52 Visit Medications: Current Medications Hydrocodone Bitart/Acetaminophen ([place] 5/325) 1 tab PO Q4H PRN PRN Reason: Moderate Pain (4-6) Last Admin: 02/02/19 16:16 Dose: 1 tab Hydrocodone Bitart/Acetaminophen ([place] 5/325) 2 tab PO Q4H PRN PRN Reason: Severe Pain (7-10) Last Admin: 02/03/19 12:33 Dose: 2 tab Al Hydroxide/Mg Hydroxide (Maalox) 30 ml PO Q4H PRN PRN Reason: Indigestion Albuterol/Ipratropium (Duoneb) 3 ml NEB Q6H PRN PRN Reason: SHORTNESS OF BREATH Last Admin: 02/02/19 21:43 Dose: 3 ml Artificial Tears (Tears Naturale) 0 drop EA EYE PRN PRN PRN Reason: Dry Eyes Aspirin (Aspirin Chewable) 81 mg PO DAILY [facility] Last Admin: 02/03/19 09:15 Dose: 81 mg Atorvastatin Calcium (Lipitor) 20 mg PO DAILY [facility] Last Admin: 02/03/19 09:15 Dose: 20 mg Bisacodyl (Dulcolax) 10 mg PO Q12H PRN PRN Reason: Constipation Bisacodyl (Dulcolax) 10 mg [place] Q12H PRN PRN Reason: Constipation Diphenhydramine HCl (Benadryl) 25 mg PO Q6H PRN PRN Reason: Itching & Insomnia or Noel Kaiden Docusate Sodium (Colace) 100 mg PO BID [facility] Last Admin: 02/03/19 09:16 Dose: Not Given Folic Acid (Folvite) 1 mg PO DAILY [facility] Last Admin: 02/03/19 09:16 Dose: 1 mg Furosemide (Lasix) 40 mg PO DAILY[facility] Last Admin: 02/03/19 09:17 Dose: 40 mg Guaifenesin/Dextromethorphan (Robitussin Dm) 15 ml PO Q4H PRN PRN Reason: Cough Metoprolol Tartrate (Lopressor) 50 mg PO BID [facility] Last Admin: 02/03/19 09:16 Dose: 50 mg Mineral Oil (Fleet Mineral Oil) 133 ml [place] DAILYPRN PRN PRN Reason: Constipation Morphine Sulfate (Morphine) 4 mg SLOW IVP Q30MIN PRN PRN Reason: Breakthrough Pain Last Admin: 02/03/19 13:56 Dose: 4 mg Multivitamins (Theragran) 1 tab PO DAILY [facility] Last Admin: 02/03/19 09:16 Dose: 1 tab Nitroglycerin (Nitrostat) 0.4 mg SL Q5MIN PRN PRN Reason: Chest Pain Ondansetron HCl (Zofran) 4 mg IVP Q6H PRN PRN Reason: Nausea/Vomiting Sodium Chloride (Flush - Normal Saline) 10 ml IVF Q12HR [facility] Last Admin: 02/03/19 09:17 Dose: 10 ml Zolpidem Tartrate (Ambien) 5 mg PO HSPRN PRN PRN Reason: Insomnia Vital Signs & Weight: Vital Signs Temp Pulse Resp BP Pulse Ox 02/03/19 12:40 92 L 02/03/19 12:00 98.3 F 02/03/19 08:00 100.2 F H 120 H 18 162/82 H 92 L 02/03/19 04:00 99.2 F 110 H 20 127/77 92 L Weight 218 lb 0.595 oz - Physical Exam General: alert & oriented x3 HEENT: normocephaly Neck: supple neck, no masses Cardiac: no murmur, regular rate, regular rhythm Lungs: normal exam Neuro: grossly intact Abdomen: soft Musculoskeletal: no pain - Labs Result Diagrams: 02/03/19 04:16 02/03/19 04:16 Troponin/CKMB CK-MB (CK-2) 1.6 ng/mL (0-6.6) 01/30/19 16:16 Troponin I 0.028 ng/mL (< 0.028) 01/31/19 02:06 - Telemetry Sinus rhythms and dysrhythmias: sinus rhythm - Assessment/Plan Assessment/Plan: CAD s/p CABG HTN 02/03 REC Pt stable after CT Seen in ICU Will follow closely 02/02 REC levophed DC this am Hold BB for now Statin, ASA treatment CT management per Sig 02/01 REC Doing well post op CW pain treated Continue to titrate down levophed as BP allows
--- NOTE | 2019-02-03 19:00 | OP ---
DATE OF PROCEDURE: 02/03/2019 PROCEDURE PERFORMED: 36-Austrian left tube thoracostomy. PREOPERATIVE DIAGNOSIS: Left-sided pneumothorax with inadequate expansion with existing small-bore catheter. POSTOPERATIVE DIAGNOSIS: Left-sided pneumothorax with inadequate expansion with existing small-bore catheter. ANESTHESIA: 1% lidocaine, local anesthesia with intravenous sedation consisting of a total of 2 mg of Versed and 50 mcg of fentanyl. INDICATIONS: The patient is a 68-year-old man 2 days postop following coronary artery bypass grafting. On this morning's x-ray, he was noted to have a large left-sided pneumothorax and an 8-Austrian catheter was used in an attempt to evacuate it, although an air cooper was heard. When placing the catheter post procedure, the catheter appeared to be kinked and there was poor re-expansion of the lung. He is now taken to the intensive care unit to allow for conscious sedation for placement of a more conventional chest tube. FINDINGS: Air cooper heard upon entering the chest. DESCRIPTION OF PROCEDURE: After informed consent was obtained, the sutures securing the existing small-bore catheter were cut and the catheter was removed. The left chest was then prepped and draped in sterile fashion incorporating the previous small stab incision for the small-bore catheter. Lidocaine was then infiltrated in the skin to allow for extension of that incision with a 10 blade scalpel. Additional lidocaine was infiltrated in the subcutaneous tissues and a subcutaneous tunnel was developed tracking superiorly and posteriorly. Additional lidocaine was infiltrated as the patient was sedated, titrating the Versed and fentanyl. Blunt dissection was used to enter the pleural space and the wound was probed with the surgeon's finger. There seemed to be some adhesions going posterolaterally. The 36-Austrian chest tube was angled for superiorly and then advanced in an attempt to have it tracked postero-apically. Air was heard rushing around the tube and bloody pleural fluid and air bubbles through it when the clamp on the tube was released. The chest tube was secured to the skin with suture and connected to close suction drainage and was dressed, and a chest x-ray is currently pending. Job ID: [id number]
--- NOTE | 2019-02-03 19:56 | PRG ---
DATE OF SERVICE: 02/03/2019 SUBJECTIVE: Naif Palmer is transferred back into the critical care unit with a pneumothorax today. Chest tubes are in place. He is afebrile. His only complaint is chest discomfort. OBJECTIVE: VITAL SIGNS: Blood pressure 124/84, heart rate is 117, respiratory rate is 18, oximetry is 97% on 3 L. LUNGS: Remarkable for equal breath sounds. HEART: Regular rhythm. ABDOMEN: Soft. LABORATORY DATA: White count 10.5, hemoglobin 10.0, platelets 136. Electrolytes are normal. IMPRESSION: 1. Pneumothorax. 2. Status post coronary artery bypass grafting, clinically stable. We will follow with the other physicians while he is back in the ICU until we are sure he is stable. Job ID: [id number]
--- NOTE | 2019-02-03 23:38 | PDOC.HOSPP ---
- Subjective Encounter Date: 02/03/19 Encounter Time: 12:00 Subjective: Patient seen and examined for CAD. Transferred to CCU due to L pneumothorax. No new complaints. No overnight events - Objective Vital Signs & Weight: Vital Signs (12 hours) Temp Pulse Ox 02/03/19 19:00 99.8 F H 02/03/19 18:59 97 02/03/19 17:00 98.5 F 02/03/19 16:00 98.2 F 02/03/19 12:40 92 L 02/03/19 12:00 98.3 F Weight Weight 218 lb 0.595 oz Most Recent Monitor Data Heart Rate from ECG 115 NIBP 121/76 NIBP BP-Mean 91 Respiration from ECG 14 SpO2 95 I&O: 02/02/19 02/03/19 02/04/19 06:59 06:59 06:59 Intake Total 2347.6 830 730 Output Total 975 300 810 Balance 1372.6 530 -80 Result Diagrams: 02/03/19 04:16 02/03/19 04:16 Additional Labs: Accuchecks 02/02/19 02/01/19 16:54 09:44 POC Glucose 306 H 153 H Radiology Reviewed by me: Yes (CXR - Pneumo) EKG Reviewed by me: Yes (Tele SR) Hospitalist ROS - Review of Systems Respiratory: denies: cough, dry, shortness of breath, hemoptysis, SOB with excertion, pleuritic pain, sputum, wheezing, other Cardiovascular: denies: chest pain, palpitations, orthopnea, paroxysmal noc. dyspnea, edema, light headedness, other - Medication Medications: Active Medications Generic Name Dose Route Start Last Admin Trade Name Freq PRN Reason Stop Dose Admin Hydrocodone Bitart/Acetaminophen 1 tab 02/01/19 11:47 02/02/19 16:16 [place] 5/325 PO 1 tab Q4H PRN Administration Moderate Pain (4-6) Hydrocodone Bitart/Acetaminophen 2 tab 02/01/19 11:47 02/03/19 19:54 [place] 5/325 PO 2 tab Q4H PRN Administration Severe Pain (7-10) Albuterol/Ipratropium 3 ml 02/01/19 11:47 02/02/19 21:43 Duoneb NEB 3 ml Q6H PRN Administration SHORTNESS OF BREATH Aspirin 81 mg 02/03/19 09:00 02/03/19 09:15 Aspirin Chewable PO 81 mg DAILY JAMIE Administration Atorvastatin Calcium 20 mg 01/31/19 09:00 02/03/19 09:15 Lipitor PO 20 mg DAILY JAMIE Administration Docusate Sodium 100 mg 02/01/19 21:00 02/03/19 19:55 Colace PO 100 mg BID JAMIE Administration Folic Acid 1 mg 02/02/19 09:00 02/03/19 09:16 Folvite PO 1 mg DAILY JAMIE Administration Furosemide 40 mg 02/03/19 07:30 02/03/19 09:17 Lasix PO 40 mg DAILY-AC JAMIE Administration Metoprolol Tartrate 50 mg 02/03/19 09:00 02/03/19 19:55 Lopressor PO 50 mg BID JAMIE Administration Morphine Sulfate 4 mg 02/03/19 12:54 02/03/19 21:41 Morphine SLOW IVP 4 mg Q30MIN PRN Administration Breakthrough Pain Multivitamins 1 tab 02/02/19 09:00 02/03/19 09:16 Theragran PO 1 tab DAILY JAMIE Administration Sodium Chloride 10 ml 02/01/19 21:00 02/03/19 19:59 Flush - Normal Saline IVF 10 ml Q12HR JAMIE Administration - Exam General Appearance: NAD Neck: supple, no JVD Heart: RRR, no gallops, no rubs Respiratory: CTAB Respiratory - other findings: dec AE on left, chest tube + Gastrointestinal: soft, non-tender, normal bowel sounds Hosp A/P - Plan DVT proph w/SCDs NSTEMI CAD s/p CABG HTN Obesity BMI 35.4 h/o chronic alcoholism HTN PLAN: Cont ASA/Statins Cont low dose Metoprolol Off Pressors Cont supportive care Cont Cardiac Rehab
[2019-02-04 04:35] LABS: #Eosinphils 0.1 thou/uL (0.0-0.7); #Lymphocytes 1.4 thou/uL (1.20-3.40); #Neutrophils 7.4 thou/uL (1.40-6.50); %Basophils 0.2 % (0.0-1.0); %Eosinophils 0.7 % (0.0-10.0); %Lymphocytes 13.8 % (21.0-51.0); %Monocytes 10.1 % (0.0-10.0); %Neutrophils 75.2 % (42.0-75.0); Hemoglobin 9.4 g/dL (14.0-18.0); Mean Corpuscular HGB CONC 31.8 g/dL (32.0-36.0); Mean Corpuscular Volume 94.5 fL (78.0-98.0); Mean Platelet Volume 8.5 fL (7.4-10.4); Platelet Count 155 thou/uL (130-400); RBC Distribution Width 12.4 % (11.5-14.5); Red Blood Cell (RBC) Count 3.13 mill/uL (4.70-6.10); White Blood Cell (WBC) Count 9.9 thou/uL (4.8-10.8)
[2019-02-04 04:48] LABS: Anion Gap 9 mmol/L (10-20); BUN (Urea Nitrogen) 21 mg/dL (8.4-25.7); Calc. Creatinine Clearance 118 mL/min (70-130); Calcium 8.7 mg/dL (7.8-10.44); Carbon Dioxide 30 mmol/L (23-31); Chloride 106 mmol/L (98-107); Estimated GFR-MDRD 89; Glucose 120 mg/dL (80-115); Potassium 4.3 mmol/L (3.5-5.1); Sodium 141 mmol/L (136-145)
[2019-02-04 06:02] VITALS: BMI 36.2
[2019-02-04] MEDS: HYDROcodone/Acetaminophen 5/325 mg Tablet PO PRN ×2 (06:02→11:22)
[2019-02-04] MEDS: Metoprolol Tartrate 50 MG TAB PO SCH ×2 (07:55→20:36)
[2019-02-04] MEDS: Atorvastatin Calcium 20 MG TAB PO SCH (07:55)
[2019-02-04] MEDS: Furosemide 40 MG TAB PO SCH (07:55)
[2019-02-04] MEDS: Folic Acid 1 MG TAB PO SCH (07:55)
[2019-02-04] MEDS: Aspirin Chewable 81 MG TAB PO SCH (07:55)
[2019-02-04] MEDS: Docusate 100 MG CAP PO SCH ×2 (07:55→20:36)
[2019-02-04] MEDS: Multivit, Therapeutic 1 TAB PO SCH (07:56)
--- NOTE | 2019-02-04 11:00 | PDOC.CPN ---
- Objective Allergies/Adverse Reactions: Allergies Allergy/AdvReac Type Severity Reaction Status Date / Time No Known Drug Allergies Allergy Verified 01/30/19 22:52 Visit Medications: Current Medications Hydrocodone Bitart/Acetaminophen ([place] 5/325) 1 tab PO Q4H PRN PRN Reason: Moderate Pain (4-6) Last Admin: 02/02/19 16:16 Dose: 1 tab Hydrocodone Bitart/Acetaminophen ([place] 5/325) 2 tab PO Q4H PRN PRN Reason: Severe Pain (7-10) Last Admin: 02/04/19 06:02 Dose: 2 tab Al Hydroxide/Mg Hydroxide (Maalox) 30 ml PO Q4H PRN PRN Reason: Indigestion Albuterol/Ipratropium (Duoneb) 3 ml NEB Q6H PRN PRN Reason: SHORTNESS OF BREATH Last Admin: 02/02/19 21:43 Dose: 3 ml Artificial Tears (Tears Naturale) 0 drop EA EYE PRN PRN PRN Reason: Dry Eyes Aspirin (Aspirin Chewable) 81 mg PO DAILY [facility] Last Admin: 02/04/19 07:55 Dose: 81 mg Atorvastatin Calcium (Lipitor) 20 mg PO DAILY [facility] Last Admin: 02/04/19 07:55 Dose: 20 mg Bisacodyl (Dulcolax) 10 mg PO Q12H PRN PRN Reason: Constipation Bisacodyl (Dulcolax) 10 mg [place] Q12H PRN PRN Reason: Constipation Diphenhydramine HCl (Benadryl) 25 mg PO Q6H PRN PRN Reason: Itching & Insomnia or Noel Kaiden Docusate Sodium (Colace) 100 mg PO BID [facility] Last Admin: 02/04/19 07:55 Dose: 100 mg Folic Acid (Folvite) 1 mg PO DAILY [facility] Last Admin: 02/04/19 07:55 Dose: 1 mg Furosemide (Lasix) 40 mg PO DAILY-AC [facility] Last Admin: 02/04/19 07:55 Dose: 40 mg Guaifenesin/Dextromethorphan (Robitussin Dm) 15 ml PO Q4H PRN PRN Reason: Cough Metoprolol Tartrate (Lopressor) 50 mg PO BID [facility] Last Admin: 02/04/19 07:55 Dose: 50 mg Mineral Oil (Fleet Mineral Oil) 133 ml [place] DAILYPRN PRN PRN Reason: Constipation Morphine Sulfate (Morphine) 4 mg SLOW IVP Q30MIN PRN PRN Reason: Breakthrough Pain Last Admin: 02/03/19 21:41 Dose: 4 mg Multivitamins (Theragran) 1 tab PO DAILY JAMIE Last Admin: 02/04/19 07:56 Dose: 1 tab Nitroglycerin (Nitrostat) 0.4 mg SL Q5MIN PRN PRN Reason: Chest Pain Ondansetron HCl (Zofran) 4 mg IVP Q6H PRN PRN Reason: Nausea/Vomiting Sodium Chloride (Flush - Normal Saline) 10 ml IVF Q12HR JAMIE Last Admin: 02/04/19 07:56 Dose: 10 ml Zolpidem Tartrate (Ambien) 5 mg PO HSPRN PRN PRN Reason: Insomnia Vital Signs & Weight: Vital Signs Temp Pulse Ox 02/04/19 08:00 99.1 F 95 02/04/19 07:50 96 02/04/19 04:00 99.4 F 02/04/19 00:00 99.4 F Weight 217 lb 9.54 oz - Physical Exam General: alert & oriented x3 HEENT: normocephaly Neck: no masses, no bruit Cardiac: no murmur, regular rate, regular rhythm Lungs: normal exam Neuro: grossly intact - Labs Result Diagrams: 02/04/19 04:15 02/04/19 03:30 Troponin/CKMB CK-MB (CK-2) 1.6 ng/mL (0-6.6) 01/30/19 16:16 Troponin I 0.028 ng/mL (< 0.028) 01/31/19 02:06 - Assessment/Plan Assessment/Plan: CAD s/p CABG HTN 02/04 REC On ASA, BB, statin CT in place Recs on CT per CV surgery 02/03 REC Pt stable after CT Seen in ICU Will follow closely 02/02 REC levophed DC this am Hold BB for now Statin, ASA treatment CT management per Dr. Radford 02/01 REC Doing well post op CW pain treated Continue to titrate down levophed as BP allows
--- NOTE | 2019-02-04 14:53 | RAD ---
EXAM: CHEST ONE VIEW HISTORY: Pneumothorax. Follow-up evaluation. COMPARISON: 02/03/2019 FINDINGS: Left subclavian central venous catheter and left-sided thoracostomy tube remain in place. No obvious pneumothorax is appreciated. There is mild volume loss at the left lung base. Minimal atelectasis is present at the right lung base. Subcutaneous emphysema is seen at the base of the neck bilaterally and in the infraclavicular regions and overlying the left chest. IMPRESSION: 1. Left sided thoracostomy tube remains in place. No pneumothorax is seen. There is persistent subcut aneous emphysema noted. 2. Left subclavian central venous catheter stable in position.
--- NOTE | 2019-02-04 17:52 | PRG ---
DATE OF SERVICE: 02/04/2019 SUBJECTIVE: Mr. Janna Palmer did have an air leak today. He is in no distress. He says his pain was much better, improved. Chest radiograph showed no pneumothorax. OBJECTIVE: VITAL SIGNS: He is afebrile. Heart rate 107, respiratory rate 20, oximetry is 94, blood pressure 166/70. LUNGS: Clear. HEART: Regular rhythm. ABDOMEN: Soft. IMPRESSION: 1. Status post coronary artery bypass grafting. 2. Pneumothorax, status post chest tube placement. 3. Hypertension. 4. He is deemed stable to transfer out of the critical care unit. We will follow from a distance. Job ID: [id number]
--- NOTE | 2019-02-04 18:13 | PDOC.HOSPP ---
- Subjective Encounter Date: 02/04/19 Encounter Time: 08:40 Subjective: Pt seen for followup re: NSTEMI. No complaints today. - Objective Vital Signs & Weight: Vital Signs (12 hours) Temp Pulse Resp BP BP Pulse Ox 02/04/19 16:00 98.5 F 95 20 145/70 H 93 L 02/04/19 11:20 99.4 F 107 H 20 166/70 H 94 L 02/04/19 08:00 99.1 F 95 02/04/19 07:50 96 Weight Weight 217 lb 9.54 oz Most Recent Monitor Data Heart Rate from ECG 110 NIBP 121/76 NIBP BP-Mean 91 Respiration from ECG 20 SpO2 92 I&O: 02/03/19 02/04/19 02/05/19 06:59 06:59 06:59 Intake Total 830 780 300 Output Total 300 890 240 Balance 530 -110 60 Result Diagrams: 02/04/19 04:15 02/04/19 03:30 Additional Labs: Labs and MARs reviewed by me EKG Reviewed by me: Yes (Tele: NSR) Hospitalist ROS - Review of Systems Cardiovascular: denies: chest pain, palpitations, orthopnea, paroxysmal noc. dyspnea, edema, light headedness Gastrointestinal: denies: nausea, vomiting, abdominal pain, diarrhea, constipation, melena, hematochezia - Medication Medications: Active Medications Generic Name Dose Route Start Last Admin Trade Name Freq PRN Reason Stop Dose Admin Hydrocodone Bitart/Acetaminophen 1 tab 02/01/19 11:47 02/02/19 16:16 [place] 5/325 PO 1 tab Q4H PRN Administration Moderate Pain (4-6) Hydrocodone Bitart/Acetaminophen 2 tab 02/01/19 11:47 02/04/19 11:22 [place] 5/325 PO 2 tab Q4H PRN Administration Severe Pain (7-10) Albuterol/Ipratropium 3 ml 02/01/19 11:47 02/02/19 21:43 Duoneb NEB 3 ml Q6H PRN Administration SHORTNESS OF BREATH Aspirin 81 mg 02/03/19 09:00 02/04/19 07:55 Aspirin Chewable PO 81 mg DAILY JAMIE Administration Atorvastatin Calcium 20 mg 01/31/19 09:00 02/04/19 07:55 Lipitor PO 20 mg DAILY JAMIE Administration Docusate Sodium 100 mg 02/01/19 21:00 02/04/19 07:55 Colace PO 100 mg BID JAMIE Administration Folic Acid 1 mg 02/02/19 09:00 02/04/19 07:55 Folvite PO 1 mg DAILY JAMIE Administration Furosemide 40 mg 02/03/19 07:30 02/04/19 07:55 Lasix PO 40 mg DAILY-AC JAMIE Administration Metoprolol Tartrate 50 mg 02/03/19 09:00 02/04/19 07:55 Lopressor PO 50 mg BID JAMIE Administration Morphine Sulfate 4 mg 02/03/19 12:54 02/03/19 21:41 Morphine SLOW IVP 4 mg Q30MIN PRN Administration Breakthrough Pain Multivitamins 1 tab 02/02/19 09:00 02/04/19 07:56 Theragran PO 1 tab DAILY JAMIE Administration Sodium Chloride 10 ml 02/01/19 21:00 02/04/19 07:56 Flush - Normal Saline IVF 10 ml Q12HR JAMIE Administration - Exam General - other findings: Obese Eye: anicteric sclera ENT: moist mucosa Neck: supple, no JVD Heart: RRR, no rubs Respiratory: CTAB Respiratory - other findings: chest tube Gastrointestinal: soft, non-tender Skin: no rashes Psychiatric: normal affect, normal behavior Hosp A/P (1) NSTEMI (non-ST elevated myocardial infarction) Code(s): I21.4 - NON-ST ELEVATION (NSTEMI) MYOCARDIAL INFARCTION Status: Acute (2) Pneumothorax Code(s): J93.9 - PNEUMOTHORAX, UNSPECIFIED Status: Acute (3) HTN (hypertension) Code(s): I10 - ESSENTIAL (PRIMARY) HYPERTENSION Status: Chronic - Plan plan discussed w/ family, PT/OT, out of bed/ambulate s/p CABG. s/p chest tube. BP improved. Continue aspirin and statin.
[2019-02-05] MEDS: Atorvastatin Calcium 20 MG TAB PO SCH (08:45)
[2019-02-05] MEDS: Aspirin Chewable 81 MG TAB PO SCH (08:45)
[2019-02-05] MEDS: Folic Acid 1 MG TAB PO SCH (08:45)
[2019-02-05] MEDS: Metoprolol Tartrate 50 MG TAB PO SCH ×2 (08:45→20:22)
[2019-02-05] MEDS: Furosemide 40 MG TAB PO SCH (08:45)
[2019-02-05] MEDS: Docusate 100 MG CAP PO SCH ×2 (08:45→20:22)
[2019-02-05] MEDS: Multivit, Therapeutic 1 TAB PO SCH (08:45)
--- NOTE | 2019-02-05 09:02 | RAD ---
EXAM: CHEST ONE VIEW HISTORY: Pneumothorax. Follow-up evaluation. COMPARISON: 02/04/2019. FINDINGS: Postsurgical changes related to median sternotomy and probable CABG are again noted. Left subclavian central venous catheter and left-sided thoracostomy tube remain in place. Parenchymal density is seen at the left lung base which may be related to volume loss versus pneumonia. An obvious pneumotho rax is not appreciated. Right lung remains clear. Subcutaneous emphysema is again seen at the base of the neck and overlying left chest. No other interval change. IMPRESSION: Left-sided thoracostomy tube remains in place. No obvious pneumothorax is appreciated. Parenchymal de nsity is seen at the left lung base which could be related to either volume loss or pneumonia. Continued follow-up is recommended.
--- NOTE | 2019-02-05 12:51 | PDOC.CPN ---
- Subjective Date: 02/05/19 Time: 12:49 Interval history: No complaints. No pain. CT remains in place. - Review of Systems General: denies: fever/chills, weight/appetite/sleep changes, night sweats, fatigue Respiratory: denies: cough, congestion, shortness of breath, exercise intolerance Cardiovascular: denies: chest pain, palpitation, edema, paroxysmal nocturnal dyspnea, orthopnea Gastrointestinal: denies: nausea, vomiting, diarrhea, constipation, abd pain, GI bleeding Musculoskeletal: denies: pain, tenderness, stiffness, swelling, arthritis/ arthralgias Neurological: denies: numbness, syncope, seizure, weakness - Objective Allergies/Adverse Reactions: Allergies Allergy/AdvReac Type Severity Reaction Status Date / Time No Known Drug Allergies Allergy Verified 01/30/19 22:52 Visit Medications: Current Medications Hydrocodone Bitart/Acetaminophen ([place] 5/325) 1 tab PO Q4H PRN PRN Reason: Moderate Pain (4-6) Last Admin: 02/02/19 16:16 Dose: 1 tab Hydrocodone Bitart/Acetaminophen ([place] 5/325) 2 tab PO Q4H PRN PRN Reason: Severe Pain (7-10) Last Admin: 02/04/19 11:22 Dose: 2 tab Al Hydroxide/Mg Hydroxide (Maalox) 30 ml PO Q4H PRN PRN Reason: Indigestion Albuterol/Ipratropium (Duoneb) 3 ml NEB Q6H PRN PRN Reason: SHORTNESS OF BREATH Last Admin: 02/02/19 21:43 Dose: 3 ml Artificial Tears (Tears Naturale) 0 drop EA EYE PRN PRN PRN Reason: Dry Eyes Aspirin (Aspirin Chewable) 81 mg PO DAILY [facility] Last Admin: 02/05/19 08:45 Dose: 81 mg Atorvastatin Calcium (Lipitor) 20 mg PO DAILY [facility] Last Admin: 02/05/19 08:45 Dose: 20 mg Bisacodyl (Dulcolax) 10 mg PO Q12H PRN PRN Reason: Constipation Bisacodyl (Dulcolax) 10 mg [place] Q12H PRN PRN Reason: Constipation Diphenhydramine HCl (Benadryl) 25 mg PO Q6H PRN PRN Reason: Itching & Insomnia or Noel Kaiden Docusate Sodium (Colace) 100 mg PO BID [facility] Last Admin: 02/05/19 08:45 Dose: 100 mg Folic Acid (Folvite) 1 mg PO DAILY [facility] Last Admin: 02/05/19 08:45 Dose: 1 mg Furosemide (Lasix) 40 mg PO DAILY-AC [facility] Last Admin: 02/05/19 08:45 Dose: 40 mg Guaifenesin/Dextromethorphan (Robitussin Dm) 15 ml PO Q4H PRN PRN Reason: Cough Metoprolol Tartrate (Lopressor) 50 mg PO BID [facility] Last Admin: 02/05/19 08:45 Dose: 50 mg Mineral Oil (Fleet Mineral Oil) 133 ml [place] DAILYPRN PRN PRN Reason: Constipation Morphine Sulfate (Morphine) 4 mg SLOW IVP Q30MIN PRN PRN Reason: Breakthrough Pain Last Admin: 02/03/19 21:41 Dose: 4 mg Multivitamins (Theragran) 1 tab PO DAILY [facility] Last Admin: 02/05/19 08:45 Dose: 1 tab Nitroglycerin (Nitrostat) 0.4 mg SL Q5MIN PRN PRN Reason: Chest Pain Ondansetron HCl (Zofran) 4 mg IVP Q6H PRN PRN Reason: Nausea/Vomiting Sodium Chloride (Flush - Normal Saline) 10 ml IVF Q12HR [facility] Last Admin: 02/05/19 08:46 Dose: 10 ml Zolpidem Tartrate (Ambien) 5 mg PO HSPRN PRN PRN Reason: Insomnia Vital Signs & Weight: Vital Signs Temp Pulse Resp BP BP Pulse Ox 02/05/19 11:40 98.3 F 91 17 142/73 H 94 L 02/05/19 08:50 94 L 02/05/19 08:00 98.6 F 105 H 16 138/71 94 L 02/05/19 04:00 99.4 F 98 17 155/70 H 98 Weight 217 lb 9.6 oz - Physical Exam General: alert & oriented x3, appears well HEENT: mucus membranes moist Neck: supple neck Cardiac: regular rate and rhythm, no murmur Lungs: normal breath sounds, no wheeze, rales, rhonchi Neuro: grossly intact Abdomen: unremarkable, soft Extremities: no cyanosis, no edema Skin: clear - Labs Result Diagrams: 02/04/19 04:15 02/04/19 03:30 Troponin/CKMB CK-MB (CK-2) 1.6 ng/mL (0-6.6) 01/30/19 16:16 Troponin I 0.028 ng/mL (< 0.028) 01/31/19 02:06 - Telemetry Sinus rhythms and dysrhythmias: sinus rhythm - Assessment/Plan Assessment/Plan: 1. CAD s/p CABG 2. HTN 3. Recent NSTEMI Continue ASA, bblocker and statin. Increase PT once CT pulled.
--- NOTE | 2019-02-05 13:03 | PDOC.HOSPP ---
- Subjective Encounter Date: 02/05/19 Encounter Time: 07:40 Subjective: Pt seen for followup re: NSTEMI. Reports mild soreness at chest surgical site. Otherwise, no complaints. - Objective Vital Signs & Weight: Vital Signs (12 hours) Temp Pulse Resp BP BP Pulse Ox 02/05/19 11:40 98.3 F 91 17 142/73 H 94 L 02/05/19 08:50 94 L 02/05/19 08:00 98.6 F 105 H 16 138/71 94 L 02/05/19 04:00 99.4 F 98 17 155/70 H 98 Weight Weight 217 lb 9.6 oz Most Recent Monitor Data Heart Rate from ECG 110 NIBP 121/76 NIBP BP-Mean 91 Respiration from ECG 20 SpO2 92 I&O: 02/04/19 02/05/19 02/06/19 06:59 06:59 06:59 Intake Total 780 540 Output Total 890 720 Balance -110 -180 Result Diagrams: 02/04/19 04:15 02/04/19 03:30 Additional Labs: Labs and MARs reviewed by me EKG Reviewed by me: Yes (Tele: NSR) Hospitalist ROS - Review of Systems Cardiovascular: reports: chest pain. denies: palpitations, orthopnea, paroxysmal noc. dyspnea, edema, light headedness Gastrointestinal: denies: nausea, vomiting, abdominal pain, diarrhea, constipation, melena, hematochezia - Medication Medications: Active Medications Generic Name Dose Route Start Last Admin Trade Name Freq PRN Reason Stop Dose Admin Hydrocodone Bitart/Acetaminophen 1 tab 02/01/19 11:47 02/02/19 16:16 [place] 5/325 PO 1 tab Q4H PRN Administration Moderate Pain (4-6) Hydrocodone Bitart/Acetaminophen 2 tab 02/01/19 11:47 02/04/19 11:22 [place] 5/325 PO 2 tab Q4H PRN Administration Severe Pain (7-10) Albuterol/Ipratropium 3 ml 02/01/19 11:47 02/02/19 21:43 Duoneb NEB 3 ml Q6H PRN Administration SHORTNESS OF BREATH Aspirin 81 mg 02/03/19 09:00 02/05/19 08:45 Aspirin Chewable PO 81 mg DAILY JAMIE Administration Atorvastatin Calcium 20 mg 01/31/19 09:00 02/05/19 08:45 Lipitor PO 20 mg DAILY JAMIE Administration Docusate Sodium 100 mg 02/01/19 21:00 02/05/19 08:45 Colace PO 100 mg BID JMAIE Administration Folic Acid 1 mg 02/02/19 09:00 02/05/19 08:45 Folvite PO 1 mg DAILY JAMIE Administration Furosemide 40 mg 02/03/19 07:30 02/05/19 08:45 Lasix PO 40 mg DAILY-AC JAMIE Administration Metoprolol Tartrate 50 mg 02/03/19 09:00 02/05/19 08:45 Lopressor PO 50 mg BID JAMIE Administration Morphine Sulfate 4 mg 02/03/19 12:54 02/03/19 21:41 Morphine SLOW IVP 4 mg Q30MIN PRN Administration Breakthrough Pain Multivitamins 1 tab 02/02/19 09:00 02/05/19 08:45 Theragran PO 1 tab DAILY JAMIE Administration Sodium Chloride 10 ml 02/01/19 21:00 02/05/19 08:46 Flush - Normal Saline IVF 10 ml Q12HR JAMIE Administration - Exam General - other findings: Obese Eye: anicteric sclera ENT: no oropharyngeal lesions Neck: supple Heart: RRR Respiratory: CTAB Gastrointestinal: soft, non-tender Skin: no rashes Musculoskeletal: normal strength Psychiatric: normal affect, normal behavior Hosp A/P (1) NSTEMI (non-ST elevated myocardial infarction) Code(s): I21.4 - NON-ST ELEVATION (NSTEMI) MYOCARDIAL INFARCTION Status: Acute (2) Pneumothorax Code(s): J93.9 - PNEUMOTHORAX, UNSPECIFIED Status: Acute (3) HTN (hypertension) Code(s): I10 - ESSENTIAL (PRIMARY) HYPERTENSION Status: Chronic - Plan plan discussed w/ family, out of bed/ambulate s/p CABG for CAD. Pt has chest tube for pneumothorax. Monitor vital signs and titrate antihypertensives as needed. Continue aspirin and statin.
[2019-02-05 15:31] LABS: Bacteria/HPF None Seen HPF (None Seen); Bilirubin Negative (Negative); Blood, Urine Negative (Negative); Clarity Clear (Clear); Glucose, Urine (Dipstick) Normal (Negative); Leukocyte Negative Leu/uL (Negative); Nitrite Negative (Negative); Protein, Urine (Dipstick) Negative (Neg-Trace); Squamous Epithelial 0-3 HPF (0-3); Urobilinogen Normal mg/dL (Less than 2); WBC/HPF 0-3 HPF (0-3)
[2019-02-05] MEDS: HYDROcodone/Acetaminophen 5/325 mg Tablet PO PRN (16:01)
--- NOTE | 2019-02-06 06:24 | PDOC.CPN ---
- Subjective Date: 02/06/19 Time: 13:29 Interval history: Doing well - Objective Allergies/Adverse Reactions: Allergies Allergy/AdvReac Type Severity Reaction Status Date / Time No Known Drug Allergies Allergy Verified 01/30/19 22:52 Visit Medications: Current Medications Hydrocodone Bitart/Acetaminophen ([place] 5/325) 1 tab PO Q4H PRN PRN Reason: Moderate Pain (4-6) Last Admin: 02/05/19 16:01 Dose: 1 tab Hydrocodone Bitart/Acetaminophen ([place] 5/325) 2 tab PO Q4H PRN PRN Reason: Severe Pain (7-10) Last Admin: 02/04/19 11:22 Dose: 2 tab Al Hydroxide/Mg Hydroxide (Maalox) 30 ml PO Q4H PRN PRN Reason: Indigestion Albuterol/Ipratropium (Duoneb) 3 ml NEB Q6H PRN PRN Reason: SHORTNESS OF BREATH Last Admin: 02/02/19 21:43 Dose: 3 ml Artificial Tears (Tears Naturale) 0 drop EA EYE PRN PRN PRN Reason: Dry Eyes Aspirin (Aspirin Chewable) 81 mg PO DAILY [facility] Last Admin: 02/05/19 08:45 Dose: 81 mg Atorvastatin Calcium (Lipitor) 20 mg PO DAILY [facility] Last Admin: 02/05/19 08:45 Dose: 20 mg Bisacodyl (Dulcolax) 10 mg PO Q12H PRN PRN Reason: Constipation Bisacodyl (Dulcolax) 10 mg [place] Q12H PRN PRN Reason: Constipation Diphenhydramine HCl (Benadryl) 25 mg PO Q6H PRN PRN Reason: Itching & Insomnia or Noel Kaiden Docusate Sodium (Colace) 100 mg PO BID [facility] Last Admin: 02/05/19 20:22 Dose: 100 mg Folic Acid (Folvite) 1 mg PO DAILY [facility] Last Admin: 02/05/19 08:45 Dose: 1 mg Furosemide (Lasix) 40 mg PO DAILY[facility] Last Admin: 02/05/19 08:45 Dose: 40 mg Guaifenesin/Dextromethorphan (Robitussin Dm) 15 ml PO Q4H PRN PRN Reason: Cough Metoprolol Tartrate (Lopressor) 50 mg PO BID [facility] Last Admin: 02/05/19 20:22 Dose: 50 mg Mineral Oil (Fleet Mineral Oil) 133 ml [place] DAILYPRN PRN PRN Reason: Constipation Morphine Sulfate (Morphine) 4 mg SLOW IVP Q30MIN PRN PRN Reason: Breakthrough Pain Last Admin: 02/03/19 21:41 Dose: 4 mg Multivitamins (Theragran) 1 tab PO DAILY [facility] Last Admin: 02/05/19 08:45 Dose: 1 tab Nitroglycerin (Nitrostat) 0.4 mg SL Q5MIN PRN PRN Reason: Chest Pain Ondansetron HCl (Zofran) 4 mg IVP Q6H PRN PRN Reason: Nausea/Vomiting Sodium Chloride (Flush - Normal Saline) 10 ml IVF Q12HR JAMIE Last Admin: 02/05/19 20:22 Dose: 10 ml Zolpidem Tartrate (Ambien) 5 mg PO HSPRN PRN PRN Reason: Insomnia Vital Signs & Weight: Vital Signs Temp Pulse Resp BP BP Pulse Ox 02/06/19 04:34 98.7 F 94 19 139/71 92 L 02/05/19 20:00 98.8 F 78 18 142/70 H 92 L Weight 209 lb 4.8 oz - Physical Exam General: alert & oriented x3, appears well HEENT: normocephaly Neck: no masses, no bruit Cardiac: regular rate, regular rhythm Lungs: normal exam Neuro: grossly intact, motor function intact Musculoskeletal: no pain - Labs Result Diagrams: 02/04/19 04:15 02/04/19 03:30 Troponin/CKMB CK-MB (CK-2) 1.6 ng/mL (0-6.6) 01/30/19 16:16 Troponin I 0.028 ng/mL (< 0.028) 01/31/19 02:06 - Assessment/Plan Assessment/Plan: CAD pneumothorax s/p CABG Doing well On BB, statin, ASA EF >40%, no need for ACEI IP and PT CXR 02/05 with no residual pneumothorax
--- NOTE | 2019-02-06 08:07 | RAD ---
EXAM: CHEST ONE VIEW HISTORY: Pneumothorax. Follow-up evaluation. COMPARISON: 02/05/2019. FINDINGS: Left subclavian central venous catheter and left-sided thoracostomy tube remain unchanged in position . Again noted is increased density at the left lung base which may represent atelectasis or possibly pneumonia. Subcutaneous emphysema is again seen in a supra and infraclavicular locations as well as overlying the left upper chest. This limits evaluation for a left apical pneumothorax. This exam is obtained with shallow depth inspiration which accentuates the cardiac silhouette and bronchov ascular markings. Median sternotomy wires are again noted. No other interval change. IMPRESSION: Left-sided thoracostomy tube remain in position. A tiny left apical pneumothorax cannot be entirely e xcluded given overlying subcutaneous emphysema. Persistent increased density at the left lung base is noted which may represent either volume loss or pneumonia.
[2019-02-06] MEDS: Multivit, Therapeutic 1 TAB PO SCH (08:21)
[2019-02-06] MEDS: Furosemide 40 MG TAB PO SCH (08:21)
[2019-02-06] MEDS: Metoprolol Tartrate 100 MG TAB PO SCH ×2 (08:21→20:53)
[2019-02-06] MEDS: Folic Acid 1 MG TAB PO SCH (08:21)
[2019-02-06] MEDS: Atorvastatin Calcium 20 MG TAB PO SCH (08:21)
[2019-02-06] MEDS: Aspirin Chewable 81 MG TAB PO SCH (08:22)
[2019-02-06] MEDS: Docusate 100 MG CAP PO SCH ×2 (08:22→20:53)
[2019-02-06] MEDS: HYDROcodone/Acetaminophen 5/325 mg Tablet PO PRN (08:31)
--- NOTE | 2019-02-06 13:13 | RAD ---
EXAM: CHEST ONE VIEW HISTORY: Pneumothorax. Post thoracostomy tube removal. COMPARISON: 02/06/2019 at 0650 hours. FINDINGS: Postsurgical changes related to median sternotomy are again noted. Left subclavian central venous cat heter is stable in position. Previously seen left-sided thoracostomy tube has been removed, and there is a better depth of inspiration present on the current study. Volume loss is present at the le ft lung base. There is evidence of a small pneumothorax at the left lung base and as well as at the medial aspect left mid lung zone. Right lung is clear. Subcutaneous emphysema in the supraclavicular regions is again present. No other interval change. IMPRESSION: Interval removal of the left-sided thoracostomy tube. There is improved depth of inspiration. A small left-sided pneumothorax is seen primarily at the left lung base and at the medial aspect left midlung zone. Parenchymal density at the left lung base is probably related to atelectasis. Above findings discussed with Kim nurse on the hospital floor regarding the left-sided pneumoth orax on 02/06/2019 at 1311 hours.
--- NOTE | 2019-02-06 18:57 | PDOC.HOSPP ---
- Subjective Encounter Date: 02/06/19 Encounter Time: 09:00 Subjective: Pt seen for followup re: NSTEMI. Denies any complaints. - Objective Vital Signs & Weight: Vital Signs (12 hours) Temp Pulse Pulse Pulse Resp BP BP 02/06/19 15:40 98.8 F 85 17 02/06/19 14:04 84 87 158/60 H 158/80 H 02/06/19 13:23 02/06/19 11:22 98.6 F 87 20 02/06/19 08:21 02/06/19 07:30 99.3 F 89 18 BP BP Pulse Ox Pulse Ox Pulse Ox 02/06/19 15:40 142/79 H 100 02/06/19 14:04 100 100 02/06/19 13:23 100 02/06/19 11:22 127/75 97 02/06/19 08:21 97 02/06/19 07:30 144/77 H 97 Weight Weight 209 lb 4.8 oz Most Recent Monitor Data Heart Rate from ECG 110 NIBP 121/76 NIBP BP-Mean 91 Respiration from ECG 20 SpO2 92 I&O: 02/05/19 02/06/19 02/07/19 06:59 06:59 06:59 Intake Total 540 1200 720 Output Total 720 410 Balance -180 790 720 Result Diagrams: 02/04/19 04:15 02/04/19 03:30 Additional Labs: labs and MARs reviewed by ks Hospitalist ROS - Review of Systems Cardiovascular: denies: chest pain, palpitations, orthopnea, paroxysmal noc. dyspnea, edema, light headedness Gastrointestinal: denies: nausea, vomiting, abdominal pain, diarrhea, constipation, melena, hematochezia Genitourinary: denies: dysuria, frequency, incontinence, hematuria, retention - Medication Medications: Active Medications Generic Name Dose Route Start Last Admin Trade Name Freq PRN Reason Stop Dose Admin Hydrocodone Bitart/Acetaminophen 1 tab 02/01/19 11:47 02/06/19 08:31 [place] 5/325 PO 1 tab Q4H PRN Administration Moderate Pain (4-6) Hydrocodone Bitart/Acetaminophen 2 tab 02/01/19 11:47 02/04/19 11:22 [place] 5/325 PO 2 tab Q4H PRN Administration Severe Pain (7-10) Albuterol/Ipratropium 3 ml 02/01/19 11:47 02/02/19 21:43 Duoneb NEB 3 ml Q6H PRN Administration SHORTNESS OF BREATH Aspirin 81 mg 02/03/19 09:00 02/06/19 08:22 Aspirin Chewable PO 81 mg DAILY JAMIE Administration Atorvastatin Calcium 20 mg 01/31/19 09:00 02/06/19 08:21 Lipitor PO 20 mg DAILY JAMIE Administration Docusate Sodium 100 mg 02/01/19 21:00 02/06/19 08:22 Colace PO 100 mg BID JAMIE Administration Folic Acid 1 mg 02/02/19 09:00 02/06/19 08:21 Folvite PO 1 mg DAILY JAMIE Administration Furosemide 40 mg 02/03/19 07:30 02/06/19 08:21 Lasix PO 40 mg DAILY-AC JAMIE Administration Metoprolol Tartrate 100 mg 02/06/19 09:00 02/06/19 08:21 Lopressor PO 100 mg BID JAMIE Administration Morphine Sulfate 4 mg 02/03/19 12:54 02/03/19 21:41 Morphine SLOW IVP 4 mg Q30MIN PRN Administration Breakthrough Pain Multivitamins 1 tab 02/02/19 09:00 02/06/19 08:21 Theragran PO 1 tab DAILY JAMIE Administration Sodium Chloride 10 ml 02/01/19 21:00 02/06/19 08:22 Flush - Normal Saline IVF 10 ml Q12HR JAMIE Administration - Exam General - other findings: Obese Eye: anicteric sclera ENT: moist mucosa Neck: supple Heart: RRR, no rubs Respiratory: CTAB Gastrointestinal: soft, non-tender Extremities: no cyanosis Psychiatric: normal affect, normal behavior Hosp A/P (1) NSTEMI (non-ST elevated myocardial infarction) Code(s): I21.4 - NON-ST ELEVATION (NSTEMI) MYOCARDIAL INFARCTION Status: Acute (2) Pneumothorax Code(s): J93.9 - PNEUMOTHORAX, UNSPECIFIED Status: Acute (3) HTN (hypertension) Code(s): I10 - ESSENTIAL (PRIMARY) HYPERTENSION Status: Chronic - Plan plan discussed w/ family s/p CABG for CAD. Chest tube removed today. Monitor vital signs and titrate antihypertensives as needed. On aspirin and statin.
--- NOTE | 2019-02-07 06:19 | PDOC.CPN ---
- Subjective Date: 02/07/19 Time: 10:13 Interval history: no complaints - Objective Allergies/Adverse Reactions: Allergies Allergy/AdvReac Type Severity Reaction Status Date / Time No Known Drug Allergies Allergy Verified 01/30/19 22:52 Visit Medications: Current Medications Hydrocodone Bitart/Acetaminophen ([place] 5/325) 1 tab PO Q4H PRN PRN Reason: Moderate Pain (4-6) Last Admin: 02/06/19 08:31 Dose: 1 tab Hydrocodone Bitart/Acetaminophen ([place] 5/325) 2 tab PO Q4H PRN PRN Reason: Severe Pain (7-10) Last Admin: 02/04/19 11:22 Dose: 2 tab Al Hydroxide/Mg Hydroxide (Maalox) 30 ml PO Q4H PRN PRN Reason: Indigestion Albuterol/Ipratropium (Duoneb) 3 ml NEB Q6H PRN PRN Reason: SHORTNESS OF BREATH Last Admin: 02/02/19 21:43 Dose: 3 ml Artificial Tears (Tears Naturale) 0 drop EA EYE PRN PRN PRN Reason: Dry Eyes Aspirin (Aspirin Chewable) 81 mg PO DAILY [facility] Last Admin: 02/06/19 08:22 Dose: 81 mg Atorvastatin Calcium (Lipitor) 20 mg PO DAILY [facility] Last Admin: 02/06/19 08:21 Dose: 20 mg Bisacodyl (Dulcolax) 10 mg PO Q12H PRN PRN Reason: Constipation Bisacodyl (Dulcolax) 10 mg [place] Q12H PRN PRN Reason: Constipation Diphenhydramine HCl (Benadryl) 25 mg PO Q6H PRN PRN Reason: Itching & Insomnia or Noel Kaiden Docusate Sodium (Colace) 100 mg PO BID [facility] Last Admin: 02/06/19 20:53 Dose: 100 mg Folic Acid (Folvite) 1 mg PO DAILY [facility] Last Admin: 02/06/19 08:21 Dose: 1 mg Furosemide (Lasix) 40 mg PO DAILY-[facility] Last Admin: 02/06/19 08:21 Dose: 40 mg Guaifenesin/Dextromethorphan (Robitussin Dm) 15 ml PO Q4H PRN PRN Reason: Cough Metoprolol Tartrate (Lopressor) 100 mg PO BID [facility] Last Admin: 02/06/19 20:53 Dose: 100 mg Mineral Oil (Fleet Mineral Oil) 133 ml [place] DAILYPRN PRN PRN Reason: Constipation Morphine Sulfate (Morphine) 4 mg SLOW IVP Q30MIN PRN PRN Reason: Breakthrough Pain Last Admin: 02/03/19 21:41 Dose: 4 mg Multivitamins (Theragran) 1 tab PO DAILY JAMIE Last Admin: 02/06/19 08:21 Dose: 1 tab Nitroglycerin (Nitrostat) 0.4 mg SL Q5MIN PRN PRN Reason: Chest Pain Ondansetron HCl (Zofran) 4 mg IVP Q6H PRN PRN Reason: Nausea/Vomiting Sodium Chloride (Flush - Normal Saline) 10 ml IVF Q12HR JAMIE Last Admin: 02/06/19 20:53 Dose: 10 ml Zolpidem Tartrate (Ambien) 5 mg PO HSPRN PRN PRN Reason: Insomnia Vital Signs & Weight: Vital Signs Temp Pulse Resp BP Pulse Ox 02/07/19 04:00 97.8 F 80 18 141/70 H 99 02/06/19 23:40 98.8 F 77 16 150/72 H 99 02/06/19 20:05 99 F 98 18 156/81 H 98 Weight 204 lb 3.2 oz - Physical Exam General: alert & oriented x3 Neck: no masses, no bruit Cardiac: no murmur, regular rate, regular rhythm Lungs: normal exam, no rales Neuro: grossly intact Extremities: no edema - Labs Result Diagrams: 02/04/19 04:15 02/04/19 03:30 Troponin/CKMB CK-MB (CK-2) 1.6 ng/mL (0-6.6) 01/30/19 16:16 Troponin I 0.028 ng/mL (< 0.028) 01/31/19 02:06 - Assessment/Plan Assessment/Plan: CAD s/p CABG Doing well BB, statin ASA IP and PT Home soon
[2019-02-07 06:26] LABS: Hemoglobin A1c 5.7 % (4.0-6.0)
[2019-02-07 06:39] LABS: Cardiac Risk 5.2 (Less than 4.5)
[2019-02-07] MEDS: Metoprolol Tartrate 100 MG TAB PO SCH (08:27)
[2019-02-07] MEDS: Docusate 100 MG CAP PO SCH (08:27)
[2019-02-07] MEDS: Aspirin Chewable 81 MG TAB PO SCH (08:27)
[2019-02-07] MEDS: Atorvastatin Calcium 20 MG TAB PO SCH (08:27)
[2019-02-07] MEDS: Multivit, Therapeutic 1 TAB PO SCH (08:27)
[2019-02-07] MEDS: Furosemide 40 MG TAB PO SCH (08:27)
[2019-02-07] MEDS: Folic Acid 1 MG TAB PO SCH (08:27)
[2019-02-07] MEDS: HYDROcodone/Acetaminophen 5/325 mg Tablet PO PRN (08:28)
--- NOTE | 2019-02-07 10:32 | RAD ---
CHEST ONE VIEW: HISTORY: Pneumothorax followup. COMPARISON: 02/06/2019 FINDINGS: Persistent moderate left sided pneumothorax. Cardiomegaly. Postop midline sternotomy. Left subclavian catheter. The right lung is clear. IMPRESSION: Persistent moderate left sided pneumothorax. Continue short term followup. POS: [facility]
--- NOTE | 2019-02-07 15:48 | PDOC.HOSPP ---
- Subjective Encounter Date: 02/07/19 Encounter Time: 07:00 Subjective: Pt seen for followup re: NSTEMI. c/o mild SOBOE, not other complaints. - Objective Vital Signs & Weight: Vital Signs (12 hours) Temp Pulse Resp BP Pulse Ox 02/07/19 11:39 99 F 86 17 129/66 91 L 02/07/19 08:27 100 02/07/19 07:32 100 02/07/19 07:22 98.8 F 80 16 133/78 100 02/07/19 04:00 97.8 F 80 18 141/70 H 99 Weight Weight 204 lb 3.2 oz Most Recent Monitor Data Heart Rate from ECG 110 NIBP 121/76 NIBP BP-Mean 91 Respiration from ECG 20 SpO2 92 I&O: 02/06/19 02/07/19 02/08/19 06:59 06:59 06:59 Intake Total 1200 970 Output Total 410 Balance 790 970 Result Diagrams: 02/04/19 04:15 02/04/19 03:30 Additional Labs: labs and MARs reviewed by me EKG Reviewed by me: Yes (Tele: NSR) Hospitalist ROS - Review of Systems Cardiovascular: denies: chest pain, palpitations, orthopnea, paroxysmal noc. dyspnea, edema, light headedness Gastrointestinal: denies: nausea, vomiting, abdominal pain, diarrhea, constipation, melena, hematochezia - Medication Medications: Active Medications Generic Name Dose Route Start Last Admin Trade Name Freq PRN Reason Stop Dose Admin Hydrocodone Bitart/Acetaminophen 1 tab 02/01/19 11:47 02/07/19 08:28 [place] 5/325 PO 1 tab Q4H PRN Administration Moderate Pain (4-6) Hydrocodone Bitart/Acetaminophen 2 tab 02/01/19 11:47 02/04/19 11:22 [place] 5/325 PO 2 tab Q4H PRN Administration Severe Pain (7-10) Albuterol/Ipratropium 3 ml 02/01/19 11:47 02/02/19 21:43 Duoneb NEB 3 ml Q6H PRN Administration SHORTNESS OF BREATH Aspirin 81 mg 02/03/19 09:00 02/07/19 08:27 Aspirin Chewable PO 81 mg DAILY JAMIE Administration Atorvastatin Calcium 20 mg 01/31/19 09:00 02/07/19 08:27 Lipitor PO 20 mg DAILY JAMIE Administration Docusate Sodium 100 mg 02/01/19 21:00 02/07/19 08:27 Colace PO 100 mg BID JAMIE Administration Folic Acid 1 mg 02/02/19 09:00 02/07/19 08:27 Folvite PO 1 mg DAILY JAMIE Administration Furosemide 40 mg 02/03/19 07:30 02/07/19 08:27 Lasix PO 40 mg DAILY-AC JAMIE Administration Metoprolol Tartrate 100 mg 02/06/19 09:00 02/07/19 08:27 Lopressor PO 100 mg BID JAMIE Administration Morphine Sulfate 4 mg 02/03/19 12:54 02/03/19 21:41 Morphine SLOW IVP 4 mg Q30MIN PRN Administration Breakthrough Pain Multivitamins 1 tab 02/02/19 09:00 02/07/19 08:27 Theragran PO 1 tab DAILY AJMIE Administration Sodium Chloride 10 ml 02/01/19 21:00 02/07/19 08:32 Flush - Normal Saline IVF 10 ml Q12HR JAMIE Administration - Exam General - other findings: Obese ENT: moist mucosa Neck: supple Heart: RRR, no rubs Respiratory: CTAB, no rales Gastrointestinal: soft, non-tender Extremities: no clubbing Neurological: no focal deficits Psychiatric: normal affect, normal behavior Hosp A/P (1) NSTEMI (non-ST elevated myocardial infarction) Code(s): I21.4 - NON-ST ELEVATION (NSTEMI) MYOCARDIAL INFARCTION Status: Acute (2) Pneumothorax Code(s): J93.9 - PNEUMOTHORAX, UNSPECIFIED Status: Acute (3) HTN (hypertension) Code(s): I10 - ESSENTIAL (PRIMARY) HYPERTENSION Status: Chronic - Plan out of bed/ambulate s/p CABG for CAD. Chest tube removed yesterday, pt has pneumothorax, monoitor. HTN controlled. On aspirin and statin.
[2019-02-07 16:37] VITALS: BP 134/73; TEMP 98.5
--- NOTE | 2019-02-07 22:27 | DIS ---
DATE OF ADMISSION: 01/30/2019 DATE OF DISCHARGE: 02/07/2019 PRINCIPAL DIAGNOSIS: Coronary artery disease with unstable angina. SECONDARY DIAGNOSIS: Left pneumothorax. PROCEDURES PERFORMED: Cardiac catheterization 01/31/2019, coronary artery bypass grafting x1 with left internal mammary artery to the LAD 02/01/2019, 8-Brazilian left tube thoracostomy 02/03/2019, 36-Brazilian left tube thoracostomy 02/03/2019. HISTORY OF PRESENT ILLNESS AND HOSPITAL COURSE: The patient is a 68-year-old man with a pattern of unstable angina, who was admitted to the hospital and ruled out for myocardial infarction. Cardiac catheterization demonstrated a very high-grade ostial LAD lesion. He underwent surgical revascularization with a left mammary graft to his LAD. On postoperative day two, his oxygen requirements have gone up and he was a little short of breath. Chest x-ray showed left-sided pneumothorax and an attempt was made to evacuate that using a small bore catheter placed at the bedside on the [place], but that did not adequately expand the lung. He was transferred back to the intensive care unit to allow for conscious sedation for more conventional chest tube placement. A 36-Brazilian chest tube adequately re-expanded his lung. Chest tubes do not appear to have an air leak the following day, but it was left to suction and placed to water seal the next day. On postoperative day five, his lung was still re-expanded and his chest tube was removed. During the process of placing a dressing on the wound, air could be heard passing either in or out of thoracostomy incision and a followup chest x-ray showed recurrence of pneumothorax primarily at the basilar component, but there was also small hilar component. He was asymptomatic and placed on 100% non- rebreather oxygen overnight and chest x-ray the following day showed a slightly different configuration to the pneumothorax, but appeared to be roughly the same size or perhaps smaller. He remained asymptomatic and it was opted to discharge him home and repeat a chest x-ray day after tomorrow. He is being sent home on Lipitor 20 mg a day, Lopressor 100 mg b.i.d., aspirin a day, and p.r.n. [place]. Job ID: [id number]
--- NOTE | 2019-02-08 16:34 | DIS ---
DATE OF ADMISSION: 01/30/2019 DATE OF DISCHARGE: 02/07/2019 PRIMARY CARE PROVIDER: Dr. Bryon Heredia. DISCHARGE DIAGNOSES: 1. Dxo-PH-srunovssa myocardial infarction. 2. Coronary artery disease. 3. Left pneumothorax. CONSULTATIONS DURING THIS HOSPITALIZATION: 1. Cardiology, Dr. Wilson. 2. Cardiovascular Surgery, Dr. Joyner. 3. Pulmonology, Dr. Moshe Douglas. POST-DISCHARGE FOLLOWUP: The patient is advised to follow up with primary care provider on February 13, 2019, at 3:30 p.m.; with Cardiology Service in 3 to 4 weeks; and with Dr. Joyner on February 23, 2019, at 2:30 p.m. HOSPITAL COURSE: Mr. Janna Palmer is a pleasant 68-year-old gentleman, who was admitted to [facility] for non ST-elevation myocardial infarction on January 30, 2019. He was seen by Cardiology Service. He was found to have high-grade ostial LAD lesion on cardiac catheterization. He underwent coronary artery bypass graft, left mammary artery to LAD. He was found to have a left-sided pneumothorax on postoperative day 2 and he had a chest tube placed. He continued to improve clinically. He is being discharged to inpatient rehab for further management. CONDITION OF PATIENT ON THE DAY OF DISCHARGE: Stable. I assessed Mr. Janna Palmer on the day of discharge. Please refer to my daily hospitalist progress note for further details. [facility] Total amount of time spent coordinating this discharge: 15 minutes. Job ID: [id number]
== END 2019-02-07 19:30 | disposition home or self-care (01) | DRG 234 ==
LOC: ERS 16:00 → 2NO 19:10 → CCU 01-31 13:10 → 2NO 02-02 08:46 → CCU 02-03 10:36 → 2NO 02-04 11:15
PROVIDERS: ADMIT Family Medicine; ATTEND Family Medicine
PROC: B2111ZZ Fluoroscopy of Multiple Coronary Arteries using Low Osmolar Contrast (ICD-10-PCS; principal; 2019-01-31)
PROC: 4A023N7 Measurement of Cardiac Sampling and Pressure, Left Heart, Percutaneous Approach (ICD-10-PCS; 2019-01-31)
PROC: 02100Z9 Bypass Coronary Artery, One Artery from Left Internal Mammary, Open Approach (ICD-10-PCS; 2019-02-01)
PROC: 5A1221Z Performance of Cardiac Output, Continuous (ICD-10-PCS; 2019-02-01)
PROC: 0W9B30Z Drainage of Left Pleural Cavity with Drainage Device, Percutaneous Approach (ICD-10-PCS; 2019-02-03)
PROC: 0W2BX0Z Change Drainage Device in Left Pleural Cavity, External Approach (ICD-10-PCS; 2019-02-03)
PROC: 0W9B40Z Drainage of Left Pleural Cavity with Drainage Device, Percutaneous Endoscopic Approach (ICD-10-PCS; 2019-02-03)
DX: I21.4 Non-ST elevation (NSTEMI) myocardial infarction (principal); J95.811 Postprocedural pneumothorax; I25.110 Atherosclerotic heart disease of native coronary artery with unstable angina pectoris; E78.5 Hyperlipidemia, unspecified; E78.00 Pure hypercholesterolemia, unspecified; I10 Essential (primary) hypertension; I16.0 Hypertensive urgency; E66.9 Obesity, unspecified; F10.20 Alcohol dependence, uncomplicated; Z68.35 Body mass index [BMI] 35.0-35.9, adult
CPT/HCPCS: 36415; 36416; 36430; 71045; 71046; 76942; 80048; 80053; 80061; 81001; 82550; 82553; 82805; 83036; 83735; 84484; 85025; 85610; 85730; 86850; 86900; 86901; 87086; 93005; 93010; 93306; 93454; 93798; 94640; 94760; 96372; 99152; C1769; J0690; J1644; J1650; J1815; J1885; J2001; J2150; J2250; J2270; J2440; J2704; J2720; J3010; J3370; J3475; J3480; J3490; J7050; J7620; P9045; Q9967; S0017; S0028

== ENCOUNTER 2019-02-09 13:14 | Outpatient (CLI) | payer MEDICARE ==
--- NOTE | 2019-02-09 16:06 | RAD ---
2 VIEWS CHEST: Date: 02/09/19 PROVIDED CLINICAL HISTORY: Postprocedural pneumothorax. FINDINGS: Comparison made with examination performed 02/07/19. There is persistent left-sided pneumothorax, appearing smaller than on prior. Persistent parenchymal changes involving the left lower lobe and small left pleural effusion. Opacity of the right lung apex is unchanged as compared to prior. IMPRESSION: 1. Persistent left-sided pneumothorax. 2. Left pleural fluid with adjacent atelectasis and/or infiltrate. 3. Stable right apical opacity. POS: [facility]
== END 2019-02-09 13:15 | disposition home or self-care (01) ==
LOC: RAD 13:14
PROVIDERS: ATTEND Thoracic Surgery (Cardiothoracic Vascular Surgery)
DX: J95.811 Postprocedural pneumothorax (principal); R91.8 Other nonspecific abnormal finding of lung field; J94.8 Other specified pleural conditions
CPT/HCPCS: 71046